=== PATIENT | male | born 1960 | race Caucasian/White ===

== ENCOUNTER 2023-10-25 06:07 | Inpatient (IN) ==
--- NOTE | 2023-10-05 16:07 | PAT Medication Instructions ---
Medication Instructions Date of Service October 05, 2023 Home Medications acetaminophen 500 mg tablet 500 mg PO QID PRN aspirin 81 mg capsule 81 mg PO HS divalproex 500 mg tablet,delayed release 1,000 mg PO HS divalproex 500 mg tablet,extended release 24 hr 500 mg PO QAM empagliflozin 12.5 mg-linaglipt 2.5 mg-metform ER 1,000 mg tablet,24hr 1 tab PO QAM lisinopril 20 mg tablet 20 mg PO HS magnesium 200 mg tablet 400 mg PO HS omeprazole 40 mg capsule,delayed release 40 mg PO DAILY PRN pramipexole 0.5 mg tablet 1.5 mg PO HS prazosin 5 mg capsule 5 mg PO HS rosuvastatin 10 mg tablet 10 mg PO HS sertraline 100 mg tablet 50 mg PO QAM solifenacin 5 mg tablet 5 mg PO QAM STOP 3 days before surgery empagliflozin 12.5 mg-linaglipt 2.5 mg-metform ER 1,000 mg tablet,24hr 1 tab PO QAM Continue as directed omeprazole 40 mg capsule,delayed release 40 mg PO DAILY PRN(if needed) ASK your prescriber and surgeon aspirin 81 mg capsule 81 mg PO HS divalproex 500 mg tablet,delayed release 1,000 mg PO HS DO NOT take the morning of surgery solifenacin 5 mg tablet 5 mg PO QAM Take morning of surgery With a small sip of water, OTHERWISE NOTHING TO EAT OR DRINK AFTER MIDNIGHT: acetaminophen 500 mg tablet 500 mg PO QID PRN(if needed) divalproex 500 mg tablet,extended release 24 hr 500 mg PO QAM sertraline 100 mg tablet 50 mg PO QAM Take evening before surgery acetaminophen 500 mg tablet 500 mg PO QID PRN(if needed) lisinopril 20 mg tablet 20 mg PO HS magnesium 200 mg tablet 400 mg PO HS pramipexole 0.5 mg tablet 1.5 mg PO HS prazosin 5 mg capsule 5 mg PO HS rosuvastatin 10 mg tablet 10 mg PO HS Other Notes If you have any questions please call us at [phone] or [phone] or [phone] or [phone]
--- NOTE | 2023-10-12 11:00 | Anesthesiology Consultation ---
Date of Service October 12, 2023 Assessment & Plan (1) Encounter for pre-operative examination: Chart Review Chart Review: Acceptable Risk for Surgery (pending PCP response regarding platelets ) and Patient seen in Pre Admission Testing - Please send optimization note to PCP re: thrombocytopenia- awaiting response (RENE Blanco) - Check BSG AM DOS requesting to stay overnight- will contact patient advocacy on further instructions (Patient with PTSD per and - patient is much more calm when is present) Per PAT appt on 10/12/23, no recent illness/disease exposures, illness related symptoms, or recent illness/disease positive tests. Will leave to surgeon's discretion if preop Covid testing needed Patient seen by PCP 10/11/23= seen for preop exam. Chronic neck painscheduled for anterior cervical discectomy C5-C7. Patient is cleared from a PCP perspective. Patient cardio clearance 10/10/23= seen for cardiac clearance. He adamantly denies any chest discomfort or shortness of breath. All recent cardiac testing has been unremarkable. Will cleared at low cardiac risk. Cleared at low risk. Teaching & Discussion Pre-Anesthesia Teaching/Discussion Notes: Instructed NPO after midnight before surgery,except medications with 15 cc of water. Medication instructions provided according to the PAT guidelines. History Surgery Operation Date: 10/25/23 14:05 Proposed Procedures p C5-C7 Anterior Cervical Discectomy and Fusion, Spinal Cord Monitoring - Zay Cr, Height/Weight Height: 5 ft 10 in Weight: 100.3 kg Allergies Allergy/AdvReac Type Severity Reaction Status Date / Time hydrocodone Allergy Unknown itching Verified 10/05/23 11:30 Medications Home Medications Medication Instructions Recorded Confirmed Last Taken acetaminophen 500 mg tablet 500 mg PO QID PRN Pain 10/05/23 10/05/23 Unknown aspirin 81 mg capsule 81 mg PO HS 10/05/23 10/05/23 Unknown divalproex 500 mg tablet,delayed 1,000 mg PO HS 10/05/23 10/05/23 Unknown release divalproex 500 mg tablet,extended 500 mg PO QAM 10/05/23 10/05/23 Unknown release 24 hr empagliflozin 12.5 mg-linaglipt 1 tab PO QAM 10/05/23 10/05/23 Unknown 2.5 mg-metform ER 1,000 mg tablet,24hr lisinopril 20 mg tablet 20 mg PO HS 10/05/23 10/05/23 Unknown magnesium 200 mg tablet 400 mg PO HS 10/05/23 10/05/23 Unknown pramipexole 0.5 mg tablet 1.5 mg PO HS 10/05/23 10/05/23 Unknown prazosin 5 mg capsule 5 mg PO HS 10/05/23 10/05/23 Unknown rosuvastatin 10 mg tablet 10 mg PO HS 10/05/23 10/05/23 Unknown sertraline 100 mg tablet 50 mg PO QAM 10/05/23 10/05/23 Unknown solifenacin 5 mg tablet 5 mg PO QAM 10/05/23 10/05/23 Unknown docusate sodium 100 mg capsule 100 mg PO BID 10/12/23 10/12/23 Unknown omeprazole 40 mg capsule,delayed 40 mg PO BID 10/12/23 10/12/23 Unknown release phenylephrine HCl 0.25 % rectal 1 supp HI BID 10/12/23 10/12/23 Unknown suppository polyethylene glycol 3350 17 17 g PO DAILY 10/12/23 10/12/23 Unknown gram/dose oral powder Past Medical History Medical History Hemorrhoids Currently working with PCP to address- recently started on suppositories and stool softeners/Miralax CAD (coronary artery disease) [facility] Medical marijuana use History of anesthesia reaction - 06/2023 states was given something to help him relax for hip replacement at [facility] in [place] that made his RLS much worse - Patient will try to find out specific medication and call or bring in DOS Tremor of both hands Panic attacks Dyslipidemia Diabetes Well controlled and stable Anxiety PTSD (post-traumatic stress disorder) Nausea and vomiting after administration of anesthetic agent Hx of myocardial infarction ~2012 card cath w/ stent to follow [facility] - follows w/ [facility] in [place] Sleep apnea CPAP; uses occasionally when he can tolerate COPD (chronic obstructive pulmonary disease) stable per pt; no meds Depression GERD (gastroesophageal reflux disease) Well controlled and stable HTN (hypertension) Restless leg syndrome Exercise / Class Metabolic Activity III < 4 Walking/Shop/Light housework (no chest pain or SOB with flat surface ambulation - uses cane ) Past Family History Family History Other No family history of adverse response to anesthesia Past Surgical History Surgical History History of esophagogastroduodenoscopy (EGD) Hx of colonoscopy Hx of cardiac catheterization ~2013- x 1 stent; [facility] Hx of skin graft multiple, for blevins Hx of arthroscopy of shoulder torn rotator cuff History of lumbar surgery History of right hip replacement 06/2023 done at surgery center in [place] Past Anesthesia History No Hx of Anesthesia Complications (with exception to combativeness pre and post op ( can help down)) and No Family Hx of Anesthesia Complications History of PONV No Hx of Motion Sickness and History of PONV Social History Smoking Status: Former smoker Do You Dip or Chew Tobacco: Yes (<1 can/day- advised) Smoking End Date: quit smoking 1981 Hx Alcohol Use: No Hx Substance Use: Yes (medical marijuana- PTSD- ADVISED) substance use type: marijuana Last Used Substance Other:: 10/05/23 Review of Systems Patient denies chest pain, shortness of breath, dyspnea on exertion, cough, wheezing, palpitations. No hx of seizures, stroke. No hx of blood clots or blood transfusions Physical Exam Vital Signs VITALS BP 129/85 P 72 TEMP 97.6 SP02 95% RESP 16 Constitutional no acute distress ENMT Mouth: no TMJ clicking Thyromental Distance: > or= 3.5 Finger Breadths (3.5) Mallampati Class: III Partial denture on bottom Neck + limited neck extension Respiratory normal respiratory effort; no respiratory distress Auscultation: lungs clear to auscultation bilaterally; no wheezes Cardiovascular Rate/Rhythm: regular rate and regular rhythm Heart Sounds: no murmur Vessels: no carotid bruit Musculoskeletal Spine: + pain with cervical ROM Extremities: extremities normal to inspection Psychiatric Orientation: alert Lab Results Anesthesia Preop Results Results Anesthesia Widget: WBC 4.12 K/ul (4.8-10.8) L 10/12/23 Hgb 13.8 g/dl (14.0-18.0) L 10/12/23 Hct 43.1 % (42.0-52.0) 10/12/23 Plt 102 K/uL (130-400) L 10/12/23 Na 141 mmol/L (136-145) 10/12/23 K 4.4 mmol/L (3.5-5.1) 10/12/23 Cl 108 mmol/L (98-107) H 10/12/23 CO2 27 mmol/L (21-32) 10/12/23 BUN 14 mg/dl (6-23) 10/12/23 Creat 0.70 mg/dl (0.6-1.4) 10/12/23 Glucose Level 102 mg/dl (70-99(Fasting)) H 10/12/23 PT 10.5 Seconds (9.0-12.0) 10/12/23 PTT 27 Seconds (21-31) 10/12/23 INR 1.0 (0.9-1.1) 10/12/23 HA1c 6.4 % (4.5-5.6) H 10/12/23 Urine Color Yellow 10/12/23 Urine Appearance Clear (Clear) 10/12/23 Urine pH 7.5 (4.5-7.5) 10/12/23 Urine Specific [place] 1.035 (1.000-1.030) H 10/12/23 Urine Protein Negative (Negative) 10/12/23 Urine Glucose (UA) 2+ (Negative) H 10/12/23 Urine Ketones Trace (Negative) H 10/12/23 Urine Blood Negative (Negative) 10/12/23 Urine Nitrite Negative (Negative) 10/12/23 Urine Bilirubin Negative (Negative) 10/12/23 Urine Urobilinogen Negative (Negative) 10/12/23 Urine Leukocyte Esterase Negative (Negative) 10/12/23 Blood Type O Positive 10/12/23 Antibody Screen NEGATIVE 10/12/23 Testing Laboratory Results Thrombocytopenia- will send note to PCP; surgeon's office also informed Electrocardiogram Date: 10/10/23 Findings: + NSR @ (79bpm) Incomplete RBBB Cannot rule out anterior infarct, age undetermined (EKG done at cardiac clearance appt 10/10/23) Chest X-Ray Date: 10/12/23 Findings: + NAD Echocardiogram Date: 12/09/22 EF: 55-60% LV Function: normal Other Findings: + LVH (moderate/concentric ) and + diastolic dysfunction Mild aortic valve sclerosis without significant stenosis Mitral annular calcification No evidence of intracardiac shunt Stress Test Date: 10/25/22 Type: nuclear Pharmacologic stress nuclear study is normal. Normal SPECT perfusion imaging. No significant ischemia detected. No evidence of infarct. Stress EKG test results normal. LVEF 50-55%
[~2023-10-25 06:07] MED LIST: ACETAMINOPHEN 500 MG TAB PO SCH; CeleBREX 200 MG CAP PO SCH; GABAPENTIN 600 MG DOSE PO SCH; LR 15ML/HR IV SCH; LR 60ML/HR IV SCH; ceFAZolin 2000MG 2,000 MG/15 ML SYR IV SCH
[2023-10-25] MEDS ORDERED: ePHEDrine sulfate 50 MG/ML AMP IV PRN (06:50)
[2023-10-25] MEDS ORDERED: ONDANSETRON INJ 2 MG/ML 2 ML VIAL IV PRN ×2 (06:50→11:18)
[2023-10-25] MEDS ORDERED: PROMETHAZINE HCL 6.25 MG in SODIUM CHLORIDE 0.9% 50 ML IV PRN (06:50)
[2023-10-25] MEDS ORDERED: ATROPINE SULFATE 0.1 MG/ML 10ML SYR IV PRN (06:50)
[2023-10-25] MEDS ORDERED: SCOPOLAMINE 1 MG TDSY TD STA (07:01)
[2023-10-25] MEDS ORDERED: LIDOCAINE 2% 2 ML VIAL/AMP(20MG/ML) INFIL ONE (07:18)
[2023-10-25] MEDS ORDERED: ONDANSETRON INJ 2 MG/ML 2 ML VIAL ONE (07:18)
[2023-10-25] MEDS ORDERED: fentaNYL citrate PF 100 MCG/2 ML VIAL ONE (07:18)
[2023-10-25] MEDS ORDERED: DEXAMETHASONE SOD INJ 4 MG/ML VIAL ONE (07:18)
[2023-10-25] MEDS ORDERED: SUGAMMADEX SODIUM 200 MG/2 ML VIAL IV ONE (07:19)
[2023-10-25] MEDS ORDERED: ceFAZolin 330 MG/ML 1 GM VIAL ONE (07:43)
--- NOTE | 2023-10-25 07:44 | History & Physical Bridge Note ---
Date of Service October 25, 2023 History & Physical Bridge Note I have examined the patient, reviewed the History & Physical and in the interval since the performance of the History & Physical I have noted the following changes of clinical significance: no changes noted
--- NOTE | 2023-10-25 07:45 | History & Physical Report ---
Date of Service October 25, 2023 Assessment & Plan (1) Cervical stenosis of spinal canal: Plan: C5-C7 anterior cervical discectomy and fusion History of Present Illness Chief Complaint: Neck and arm pain Primary Care Provider: Jonathan Woods PA-C This is a 63-year-old male who presents with chronic systolic and arm pain failing course of nonoperative care is here for surgical invention. Allergies Allergy/AdvReac Type Severity Reaction Status Date / Time hydrocodone Allergy Unknown itching Verified 10/25/23 06:41 midazolam [From Versed] AdvReac Severe Combative Verified 10/25/23 06:41 Home Medications Medication Instructions Recorded Confirmed Type acetaminophen 500 mg tablet 500 mg PO QID PRN Pain 10/05/23 10/25/23 History aspirin 81 mg capsule 81 mg PO HS 10/05/23 10/25/23 History divalproex 500 mg tablet,delayed 1,000 mg PO HS 10/05/23 10/25/23 History release (Depakote) divalproex 500 mg tablet,extended 500 mg PO QAM 10/05/23 10/25/23 History release 24 hr empagliflozin 12.5 mg-linaglipt 1 tab PO QAM 10/05/23 10/25/23 History 2.5 mg-metform ER 1,000 mg tablet,24hr (Trijardy XR) lisinopril 20 mg tablet 20 mg PO HS 10/05/23 10/25/23 History magnesium 200 mg tablet 400 mg PO HS 10/05/23 10/25/23 History pramipexole 0.5 mg tablet 1.5 mg PO HS 10/05/23 10/25/23 History prazosin 5 mg capsule (Minipress) 5 mg PO HS 10/05/23 10/25/23 History rosuvastatin 10 mg tablet 10 mg PO QAM 10/05/23 10/25/23 History sertraline 100 mg tablet 50 mg PO QAM 10/05/23 10/25/23 History solifenacin 5 mg tablet (Vesicare) 5 mg PO QAM 10/05/23 10/25/23 History docusate sodium 100 mg capsule 100 mg PO BID 10/12/23 10/25/23 History omeprazole 40 mg capsule,delayed 40 mg PO BID 10/12/23 10/25/23 History release phenylephrine HCl 0.25 % rectal 1 supp MI BID 10/12/23 10/25/23 History suppository polyethylene glycol 3350 17 17 g PO DAILY 10/12/23 10/25/23 History gram/dose oral powder Past Med/Surg History Medical History Hemorrhoids Currently working with PCP to address- recently started on suppositories and stool softeners/Miralax CAD (coronary artery disease) [facility] Medical marijuana use History of anesthesia reaction - 06/2023 states was given something to help him relax for hip replacement at [facility] in [place] that made his RLS much worse - Patient will try to find out specific medication and call or bring in DOS Tremor of both hands Panic attacks Dyslipidemia Diabetes Well controlled and stable Anxiety PTSD (post-traumatic stress disorder) Nausea and vomiting after administration of anesthetic agent Hx of myocardial infarction ~2012 card cath w/ stent to follow [facility] - follows w/ [facility] in [place] Sleep apnea CPAP; uses occasionally when he can tolerate COPD (chronic obstructive pulmonary disease) stable per pt; no meds Depression GERD (gastroesophageal reflux disease) Well controlled and stable HTN (hypertension) Restless leg syndrome Surgical History History of esophagogastroduodenoscopy (EGD) Hx of colonoscopy Hx of cardiac catheterization ~2012- x 1 stent; [facility] Hx of skin graft multiple, for blevins Hx of arthroscopy of shoulder torn rotator cuff History of lumbar surgery History of right hip replacement 06/2023 done at surgery center in [place] Family History Other No family history of adverse response to anesthesia Social History Smoking Status: Former smoker Tobacco Type: Cigarettes and Smokeless Tobacco (Dip or Chew) Smoking End Date: quit smoking 1981; Second Hand Exposure: No; Do You Dip or Chew Tobacco: Yes (<1 can/day- advised); Tobacco Cessation Education Requested by Patient: No Hx Alcohol Use: No Hx Substance Use: Yes (medical marijuana- PTSD- ADVISED) Last Used Substance Other:: 10/05/23 Preferred Language: Malay Communication Ability: Effective Title Searcher Required: No Beliefs That Will Affect Care: None Current Living Situation: Spouse Other Information That Helps Us Care for You: No Feels Safe at Home: Yes Safety Concerns: Feels Safe At This Time Assistive Devices: CPAP, Denture - Lower, Glasses and Hearing Aid - Bilateral Physical Exam Physical Exam: Patient is alert and oriented Heart regular rhythm Lungs clear
[2023-10-25] MEDS ORDERED: PROPOFOL IV EMULSION 10 MG/ML 20 ML VIAL IV ONE (08:19)
[2023-10-25] MEDS ORDERED: ROCURONIUM BROMIDE 10 MG/ML 5 ML VIAL IV ONE (08:19)
[2023-10-25] MEDS ORDERED: HYDROmorphone INJ 2 MG/ML SYR/VIAL ONE (08:22)
[2023-10-25] MEDS ORDERED: FLOSEAL HEMOSTATIC MATRIX 10ML TOP ONE (08:50)
--- NOTE | 2023-10-25 09:28 | Operative Report ---
Post Operative Report Pre & Post Diagnosis Operation Date: 10/25/23 07:45 Pre-Op Diagnosis: Cervical spinal stenosis with radiculopathy Post-Op Diagnosis: Same I identified the patient and participated in the time-out.: Yes Procedure Operation Date: 10/25/23 07:45 Actual Procedures #1 anterior cervical discectomy with bilateral foraminotomies C5-C6 C6-C7. #2 anterior cervical cancer C5-C6 C6-C7. #3 placement of Spira 7 mm cage filled with I factor at C5-C6 and 8 mm cage filled I factor C6-C7. #4 application of K2 M plate and screws from C5-C7. Surgeon Zay Cr, DO Log Handling Equipment Operator Rupa Gil Estimated Blood Loss 10 Findings Consistent with Post-Op Diagnosis Specimens None Indications This is a 63-year-old male presents above-mentioned diagnosis after failing course of nonoperative care is here for surgical invention. Description of Procedure Patient was met with identified informed sent obtained. Patient was then taken to the operative suite underwent ablation placed in spine position jacks table with head Negrete holt. All bony promises well-padded eyes inspected to ensure no external pressure placed upon them. This point the anterior cervical spine was prepped and draped in a sterile fashion. With the assistance of fluoroscopy identified the C6 vertebral body and a transverse incision was placed along the right anterior aspect of the cervical spine overlying his region. Blunt dissection with the assistance of bipolar cautery performed down to and exposing his anterior cervical spine from C5-C7. Self-retaining tractors placed. Then performed complete discectomy of C5-C6 out to the uncovertebral joint bilaterally. Decker distraction pins utilized to assist in visualization. Removed all posterior fibers longitude ligament bilateral foraminotomies were performed. Endplates burred to subcortical bleeding bone at 7 mm Spira cage with I factor tapped in position. Then proceeded to C6-C7. Again complete discectomy performed out to the uncovertebral joints bilaterally. Decker distractor pins again utilized. Removed all posterior annular fibers longitudinal ligament bilateral foraminotomies performed. Endplates burred to subcortical bleeding bone and a 8 mm Spira cage filled with I factor tapped in position. Distracting apparatus was removed all anterior osteophytes burred to a smooth cortical surface and a K2 M plate and screws applied with the assistance of fluoroscopy. The incision was then copiously irrigated explored to ensure no damage to surrounding structures remaining bleeding. 10 round SHEYLA drain inserted. The incision was then closed with 2 Vicryl in a fashion of 4 Monocryl for final closure. Steri-Strips sterile dressing placed. Patient waken taken to PACU in stable condition. Please note spinal cord monitoring visualized at the procedure no changes noted. Lastly Rupa Gil was present at the entire procedure none patient positioning complex portion of the surgery and final skin closure. I attest to the content of the Intraoperative Record and any orders documented therein. Any exceptions are noted below.
[2023-10-25] MEDS: fentaNYL citrate PF 100 MCG/2 ML VIAL IV PRN ×4 (09:47→10:02)
--- NOTE | 2023-10-25 10:07 | Fluoroscopy Report ---
INTRAOPERATIVE RADIOGRAPHS CLINICAL HISTORY: Cervical spinal fusion surgery. Fluoro time: 12 seconds Ka,r: 2.55 mGy FINDINGS: 3 spot fluoroscopic views of the cervical spine are presented. There has been discectomy at C5-C6 and C6-C7 with anterior fusion at C5-C7. The orthopedic hardware appears intact. An endotrache al tube is in place. IMPRESSION: Intraoperative images from cervical spinal fusion surgery as above. Electronically signed by: Nasim Rivas M.D. 10/25/2023 10:05 AM
[2023-10-25] MEDS: HYDROmorphone INJ 1 MG/ML SYRINGE IV PRN ×2 (10:08→10:13)
[2023-10-25] MEDS ORDERED: dexAMETHasone 8 MG in SYRINGE 0 ML IV PRN (11:18)
[2023-10-25] MEDS ORDERED: METOCLOPRAMIDE HCL INJ 5 MG/ML 2 ML VIAL IV PRN (11:18)
[2023-10-25] MEDS ORDERED: FAMOTIDINE 20 MG TAB PO PRN (11:18)
[2023-10-25] MEDS ORDERED: NALOXONE HCL 0.4 MG/1 ML VIAL/CARP IV PRN (11:18)
[2023-10-25] MEDS ORDERED: bisacodyL 10 MG SUPP PR PRN (11:18)
[2023-10-25] MEDS ORDERED: RACEPINEPHRINE 2.25% NEBU SOLN 0.5 ML VIAL INH PRN (11:18)
[2023-10-25] MEDS ORDERED: ACETAMINOPHEN 1,000 MG/100 ML VIAL IV PRN (11:18)
[2023-10-25] MEDS ORDERED: DO NOT ADMINISTER FLU VACCINE PRN (11:18)
[2023-10-25] MEDS ORDERED: PROMETHAZINE HCL 12.5 MG in SODIUM CHLORIDE 0.9% 50 ML IV PRN (11:18)
[2023-10-25] MEDS ORDERED: ALUMINUM/MAGNESIUM SUSP 30 ML UDC PO PRN (11:18)
[2023-10-25] MEDS ORDERED: MAGNESIUM HYDROXIDE SUSP 30 ML UDC PO PRN (11:18)
[2023-10-25] MEDS ORDERED: SOD PHOSPHATE/SOD BIPHOSPHATE ENEMA 132 ML BTL PR PRN (11:18)
[2023-10-25] MEDS ORDERED: HYDROmorphone INJ 0.5 MG/0.5 ML SYR IV PRN (11:18)
[2023-10-25] MEDS ORDERED: hydrOXYzine HCl 25 MG TAB PO PRN (11:18)
[2023-10-25] MEDS ORDERED: diphenhydrAMINE Capsule 25 MG CAP PO PRN (11:18)
[2023-10-25] MEDS ORDERED: ONDANSETRON 4 MG OD TAB PO PRN (11:18)
[2023-10-25] MEDS ORDERED: LORazepam 0.5 MG in SYRINGE 0.25 ML IV PRN (11:18)
[2023-10-25] MEDS ORDERED: DO NOT ADMINISTER PNEUMOCOCCAL VACCINE PRN (11:18)
[2023-10-25] MEDS ORDERED: ACETAMINOPHEN 500 MG TAB PO PRN (11:18)
[2023-10-25] MEDS ORDERED: traMADol HCL 50 MG TABLET PO PRN (11:18)
[2023-10-25] MEDS ORDERED: LORazepam 0.5 MG TAB PO PRN (11:18)
[2023-10-25] MEDS ORDERED: PHARMACY GLYCEMIC MGMT CONSULT PRN (11:18)
[2023-10-25] MEDS ORDERED: HYDROmorphone INJ 1 MG/ML SYRINGE IV PRN (11:18)
--- NOTE | 2023-10-25 11:38 | Consultation ---
Date of Consultation October 25, 2023 Assessment & Plan (1) Diabetes: (2) Cervical stenosis of spinal canal: (3) CAD (coronary artery disease): (4) HTN (hypertension): (5) Depression: (6) Sleep apnea: Plan Mr. Uribe is a 63 year old male that presented to the [facility] for an elective C5-C7 ACDF after failed conservative management under the care of Dr. Cr. Intra-operatively EBL 10mL. Additional PMH includes: CAD s/p AMI with stent placement in 2012, DM, PTSD, HTN, depression and overactive bladder. He has had a hip replacement recently and also has had lumbar surgeries in [place] years ago. Consultation for medical management. Cervical stenosis of spinal canal: POD# 0 s/p C5-C7 ACDF with Dr. Cr. Per ortho for pain control, wound care, anticoagulation and activities. anterior SHEYLA drain with sammi red bloody output Monitor H&H, pre op Hgb on 10/12 is 13.8; trend in AM Continue incentive spirometry, PT/OT when appropriate CAD s/p AMI: HTN: Chronic 2013 stent x1 at [facility] [place] Takes ASA daily;continue Takes Lisinopril; continue HLD: Chronic Takes Rosuvastatin;continue Bipolar Disorder: Chronic Takes Depakote;continue Depression: PTSD: Chronic Takes Sertraline;continue He does use medical marijuana for PTSD/anxiety. PTSD is related to his miliary experiences. Triggers include loud noises, beeping, etc. Diabetes: Chronic Takes Trijardy; hold while inpt and surgical team has pt placed on SSI FSBS ACHS Most recent A1C: 10/12 6.4 RLS: Chronic Takes pramipexole;continue OAB: Chronic Takes Vesicare;continue Disposition: [facility]: [facility] Code Status: Full Code VTE Prophylaxis: per admitting team I spent a total of 60 minutes coordinating, documenting, and providing care for this patient excluding time spent in the performance of separately billed services. All of the aforementioned completed while collaborating with the assigned attending physician for a full treatment plan. Please see their addendum for further details. Supervising Physician Co-Signing Physician Notes I have seen and examined the patient and have discussed the case with the provider above. I agree with the assessment and plan as stated. DO Salas History of Present Illness Requesting Physician: Dr. Cr Reason for Consultation: post operative medical management Attending Physician: Zay Cr DO History of Present Illness Mr. Uribe is a 63 year old male that presented to the [facility] for an elective C5-C7 ACDF after failed conservative management under the care of Dr. Cr. Intra-operatively EBL 10mL. Additional PMH includes: CAD s/p AMI with stent placement in 2012, DM, PTSD, HTN, depression and overactive bladder. He has had a hip replacement recently and also has had lumbar surgeries in [place] years ago. He quit smoking cigarettes in the . He does use medical marijuana for PTSD/anxiety. He reportedly has COPD that is stable without medications and has a CPAP machine at home for sleep apnea, but has not used it in over a few months. Patient denies numbness and tingling, SOB, chest pain, palpitations, abdominal pain or tenderness. He is sitting upright in his hospital bed, AAOx4 and able to hold full meaningful conversation. He reports that his PTSD is related to his experiences. Triggers include loud noises, beeping, etc. We will work to remove his IV fluids as he continues to tolerate PO intake. He is saturating 96% on 2LNC and tolerating well. [facility] operative medical management. Thank you kindly for this consultation. Allergies Allergy/AdvReac Type Severity Reaction Status Date / Time hydrocodone Allergy Unknown itching Verified 10/25/23 06:41 midazolam [From Versed] AdvReac Severe Combative Verified 10/25/23 06:41 Home Medications Medication Instructions Recorded Confirmed Type acetaminophen 500 mg tablet 500 mg PO QID PRN Pain 10/05/23 10/25/23 History aspirin 81 mg capsule 81 mg PO HS 10/05/23 10/25/23 History divalproex 500 mg tablet,delayed 1,000 mg PO HS 10/05/23 10/25/23 History release (Depakote) divalproex 500 mg tablet,extended 500 mg PO QAM 10/05/23 10/25/23 History release 24 hr empagliflozin 12.5 mg-linaglipt 1 tab PO QAM 10/05/23 10/25/23 History 2.5 mg-metform ER 1,000 mg tablet,24hr (Trijardy XR) lisinopril 20 mg tablet 20 mg PO HS 10/05/23 10/25/23 History magnesium 200 mg tablet 400 mg PO HS 10/05/23 10/25/23 History pramipexole 0.5 mg tablet 1.5 mg PO HS 10/05/23 10/25/23 History prazosin 5 mg capsule (Minipress) 5 mg PO HS 10/05/23 10/25/23 History rosuvastatin 10 mg tablet 10 mg PO QAM 10/05/23 10/25/23 History sertraline 100 mg tablet 50 mg PO QAM 10/05/23 10/25/23 History solifenacin 5 mg tablet (Vesicare) 5 mg PO QAM 10/05/23 10/25/23 History docusate sodium 100 mg capsule 100 mg PO BID 10/12/23 10/25/23 History omeprazole 40 mg capsule,delayed 40 mg PO BID 10/12/23 10/25/23 History release phenylephrine HCl 0.25 % rectal 1 supp MD BID PRN Hemorrhoids 10/12/23 10/25/23 History suppository polyethylene glycol 3350 17 17 g PO DAILY PRN Constipation 10/12/23 10/25/23 History gram/dose oral powder oxycodone 5 mg tablet 5 mg PO Q6H PRN pain #20 tabs 10/25/23 10/25/23 Rx tramadol 50 mg tablet 50 mg PO Q6H PRN pain, moderate 10/25/23 10/25/23 Rx #30 tabs Patient History Medical History (Updated 10/25/23 @ 11:33 by MARYCHUY Wahl) Diabetes Well controlled and stable Hemorrhoids Currently working with PCP to address- recently started on suppositories and stool softeners/Miralax CAD (coronary artery disease) s/p stent [facility]) Medical marijuana use History of anesthesia reaction - 06/2023 states was given something to help him relax for hip replacement at [facility] in [place] that made his RLS much worse - Patient will try to find out specific medication and call or bring in DOS Tremor of both hands Panic attacks Dyslipidemia Anxiety PTSD (post-traumatic stress disorder) Nausea and vomiting after administration of anesthetic agent Hx of myocardial infarction ~2012 card cath w/ stent to follow [facility] - follows w/ [facility] in [place] Sleep apnea CPAP; uses occasionally when he can tolerate COPD (chronic obstructive pulmonary disease) stable per pt; no meds Depression GERD (gastroesophageal reflux disease) Well controlled and stable HTN (hypertension) Restless leg syndrome Surgical History History of esophagogastroduodenoscopy (EGD) Hx of colonoscopy Hx of cardiac catheterization ~2013- x 1 stent; [facility] Hx of skin graft multiple, for blevins Hx of arthroscopy of shoulder torn rotator cuff History of lumbar surgery History of right hip replacement 06/2023 done at surgery center in [place] Family History Other No family history of adverse response to anesthesia Social History Smoking Status: Former smoker Tobacco Type: Cigarettes and Smokeless Tobacco (Dip or Chew) Smoking End Date: quit smoking 1981; Second Hand Exposure: No; Do You Dip or Chew Tobacco: Yes (<1 can/day- advised); Tobacco Cessation Education Requested by Patient: No Hx Alcohol Use: No Hx Substance Use: Yes (medical marijuana- PTSD- ADVISED) Last Used Substance Other:: 10/05/23 Preferred Language: Samoan Communication Ability: Effective Cluster Bore Operator Required: No Beliefs That Will Affect Care: None Current Living Situation: Spouse Other Information That Helps Us Care for You: No Feels Safe at Home: Yes Safety Concerns: Feels Safe At This Time Assistive Devices: CPAP, Denture - Lower, Glasses and Hearing Aid - Bilateral Review of Systems Review of Systems: Neuro: (-) Falls, trauma, slurred speech HEENT: (-) SAMSON, dizziness, dysphagia, visual or auditory changes CV: (-) CP, palpitations, swelling Resp: (-) SOB GI: (-) appetite changes, N/V/D, bowel changes : (-) urinary changes Skin: (-) rashes Psych: (-) anxiety, depression Physical Exam Physical Exam: Neuro: AAOx4, PERRLA, no aphagia, memory changes, CNII-XII grossly intact HEENT: head normocephalic, moist mucus membranes CV: S1/S2, (-) M/G/R, (-) edema, cap refill < 3 seconds Has anterior SHEYLA drain with sammi red blood Resp: Lungs CTA in all rodriguez. On 2LNC GI: Abdomen S/NT/ND, Ax4 bowel sounds, (-) CVA tenderness Musculoskeletal: 5/5 B/L UE strength, 5/5 B/L LE strength. No gait disturbance Skin: (-) rashes , (-) erythema. Psych: euthymic mood Results & Data Vital Signs (Past 12 Hours) Vital Signs Temp Pulse Pulse Resp BP Pulse Ox O2 Del Method 10/25/23 11:22 80 16 147/92 H 95 Nasal Cannula 10/25/23 10:35 88 17 149/91 H 94 Nasal Cannula 10/25/23 10:25 89 17 132/97 93 Nasal Cannula 10/25/23 10:15 36.2 C L 91 H 17 167/97 H 93 Nasal Cannula 10/25/23 10:05 89 14 158/99 H 93 Nasal Cannula 10/25/23 09:55 99 H 14 189/106 H 93 Nasal Cannula 10/25/23 09:45 94 H 15 180/104 H 93 Nasal Cannula 10/25/23 09:36 36.1 C L 98 H 17 169/93 H 93 Nasal Cannula O2 Flow Rate 10/25/23 11:22 2 10/25/23 10:35 3 10/25/23 10:25 3 10/25/23 10:15 3 10/25/23 10:05 3 10/25/23 09:55 3 10/25/23 09:45 3 10/25/23 09:36 3 Diagnostic Findings Cervical Spine X-Ray 10/25/23 00:00 INTRAOPERATIVE RADIOGRAPHS CLINICAL HISTORY: Cervical spinal fusion surgery. Fluoro time: 12 seconds Ka,r: 2.55 mGy FINDINGS: 3 spot fluoroscopic views of the cervical spine are presented. There has been discectomy at C5-C6 and C6-C7 with anterior fusion at C5-C7. The orthopedic hardware appears intact. An endotracheal tube is in place. IMPRESSION: Intraoperative images from cervical spinal fusion surgery as above. Electronically signed by: Nasim Rivas M.D. 10/25/2023 10:05 AM
[2023-10-25] MEDS: LACTATED RINGER'S 1,000 ML IV SCH ×2 (11:46→18:27)
[2023-10-25] MEDS ORDERED: LANTUS PER UNIT CHARGE SC ONE (12:00)
[2023-10-25] MEDS ORDERED: GLUCOSE 40% GEL 15 GM TUBE PO PRN (12:00)
[2023-10-25] MEDS ORDERED: CARBOHYDRATES FOR HYPOGLYCEMIA PO PRN (12:00)
[2023-10-25] MEDS ORDERED: GLUCAGON FOR INJ 1 MG VIAL IM PRN (12:00)
[2023-10-25] MEDS ORDERED: DEXTROSE 50% 50 ML SYRINGE IV PRN (12:00)
[2023-10-25] MEDS ORDERED: GLUCOSE 10 TAB/TUBE PO PRN (12:00)
[2023-10-25] MEDS: INSULIN ASPART PER UNIT CHARGE SC SCH ×3 (13:13→21:08)
--- NOTE | 2023-10-25 14:17 | Pharmacy Report ---
Pharmacy Glycemic Short Note 2 - Date of Service October 25, 2023 - Glycemic Short BSG Results (Last 24 hours): 10/25/23 10/25/23 06:33 09:42 POC Glucose 165 H 169 H OUTPATIENT ANTIDIABETIC REGIMEN: * Trijardy XR 1 tab PO daily * HbA1c: 6.4% (10/12/23) ASSESSMENT: * Mr Uribe is a 63yo diabetic male, POD 0 s/p spinal surgery w/ Dr Cr this morning. * Pt received 8mg IV dexamethasone pre-op and is scheduled to receive IV DXM daily x3 doses post-op. This tends to cause significant steroid-induced hyperglycemia. * Pt initiated on SQ basal/bolus insulin on admission. PLAN FOR INPATIENT GLYCEMIC CONTROL: * Hold outpatient oral diabetes medications * Basal insulin * Lantus 20 units SQ x1 dose on admission * further dosing pending BSG trend overnight * Bolus insulin * NovoLog per scale ACHS or Q6hrs while NPO * Goal Range: Low 110 mg/dL - High 140 mg/dL * Correction Factor: 25 mg/dL/unit * Nutritional / Prandial insulin per carb ratio of 1 unit per 7 grams CHO consumed
--- NOTE | 2023-10-25 14:24 | Anesthesiology Progress Note ---
Date of Service October 25, 2023 Anesthesia Post Procedure Vital Signs Vital Signs: Temp Pulse Pulse Resp BP Pulse Ox O2 Del Method 10/25/23 14:03 73 16 161/94 H 94 Nasal Cannula 10/25/23 13:05 36.6 C 77 16 165/93 H 95 Nasal Cannula 10/25/23 12:00 83 16 148/92 H 95 Nasal Cannula 10/25/23 11:22 80 16 147/92 H 95 Nasal Cannula 10/25/23 11:18 84 18 96 Nasal Cannula 10/25/23 10:50 Nasal Cannula 10/25/23 10:50 36.7 C 84 16 145/92 H 96 Nasal Cannula 10/25/23 10:35 88 17 149/91 H 94 Nasal Cannula 10/25/23 10:25 89 17 132/97 93 Nasal Cannula 10/25/23 10:15 36.2 C L 91 H 17 167/97 H 93 Nasal Cannula 10/25/23 10:05 89 14 158/99 H 93 Nasal Cannula 10/25/23 09:55 99 H 14 189/106 H 93 Nasal Cannula 10/25/23 09:45 94 H 15 180/104 H 93 Nasal Cannula 10/25/23 09:36 36.1 C L 98 H 17 169/93 H 93 Nasal Cannula O2 Flow Rate 10/25/23 14:03 2 10/25/23 13:05 2 10/25/23 12:00 2 10/25/23 11:22 2 10/25/23 11:18 3 10/25/23 10:50 2 10/25/23 10:50 2 10/25/23 10:35 3 10/25/23 10:25 3 10/25/23 10:15 3 10/25/23 10:05 3 10/25/23 09:55 3 10/25/23 09:45 3 10/25/23 09:36 3 Pain Intensity Neck: Pain Intensity: 5 Transfer of Care Handoff Completed per policy Notes Mental Status: alert / awake / arousable and participated in evaluation Patient Amnestic to Procedure: Yes Nausea / Vomiting: adequately controlled Pain: adequately controlled Airway Patency, RR, SpO2: stable & adequate BP & HR: stable & adequate Hydration State: stable & adequate Anesthetic Complications: no major complications apparent and Pt Satisfied with anesthetic care
[2023-10-25] MEDS: oxyCODONE HCL IR 5 MG TAB (IMMEDIATE RELEASE) PO PRN ×2 (16:01→20:59)
[2023-10-25] MEDS: CHECK SCOPOLAMINE PATCH PLACEMENT SCH ×2 (16:02→23:36)
[2023-10-25] MEDS: ceFAZolin 2000MG 2,000 MG/15 ML SYR IV SCH (16:45)
[2023-10-25] MEDS: PANTOprazole 40 MG TAB PO SCH (20:49)
[2023-10-25] MEDS: DOCUSATE SODIUM 100 MG CAP PO SCH (20:50)
[2023-10-25] MEDS ORDERED: DOCUSATE SODIUM/SENNA 50/8.6MG TAB PO SCH (21:00)
[2023-10-25] MEDS ORDERED: PRAZOSIN HCL 1 MG CAP PO SCH (21:00)
[2023-10-25] MEDS ORDERED: ASPIRIN 81 MG ECTAB PO SCH (21:00)
[2023-10-25] MEDS ORDERED: MAGNESIUM OXIDE 400 MG TAB PO SCH (21:00)
[2023-10-25] MEDS ORDERED: PRAMIPEXOLE DIHYDROCHLO 0.5 MG TAB PO SCH (21:00)
[2023-10-25] MEDS ORDERED: lisinopril 20 MG TAB PO SCH (21:00)
[2023-10-25] MEDS ORDERED: DIVALPROEX DELAY RELEASE 500 MG TAB PO SCH (21:00)
[2023-10-26] MEDS: ceFAZolin 2000MG 2,000 MG/15 ML SYR IV SCH (00:47)
[2023-10-26] MEDS: LACTATED RINGER'S 1,000 ML IV SCH ×2 (00:48→07:44)
[2023-10-26] MEDS: oxyCODONE HCL IR 5 MG TAB (IMMEDIATE RELEASE) PO PRN ×2 (05:20→10:18)
[2023-10-26] MEDS ORDERED: POLYETHYLENE (MIRALAX) 17 GM PACK PO SCH (06:00)
[2023-10-26] MEDS: PANTOprazole 40 MG TAB PO SCH (08:32)
[2023-10-26] MEDS: DOCUSATE SODIUM 100 MG CAP PO SCH (08:32)
[2023-10-26] MEDS: INSULIN ASPART PER UNIT CHARGE SC SCH (08:47)
[2023-10-26] MEDS: CHECK SCOPOLAMINE PATCH PLACEMENT SCH (08:50)
[2023-10-26] MEDS ORDERED: OXYBUTYNIN CHLORIDE XL 5 MG TABCR PO SCH (09:00)
[2023-10-26] MEDS ORDERED: ROSUVASTATIN CALCIUM 10 MG TAB PO SCH (09:00)
[2023-10-26] MEDS ORDERED: DIVALPROEX EXTENDED RELEASE 500 MG TAB PO SCH (09:00)
[2023-10-26] MEDS ORDERED: SERTRALINE HCL 50 MG TABLET PO SCH (09:00)
[2023-10-26] MEDS ORDERED: dexAMETHasone 6 MG in SYRINGE 0 ML IV SCH (09:00)
[2023-10-26] MEDS ORDERED: LANTUS PER UNIT CHARGE SC SCH (09:00)
--- NOTE | 2023-10-26 09:27 | Discharge Summary ---
Date of Service October 26, 2023 Admission HPI Per Admitting Provider This is a 63-year-old male who presents with chronic systolic and arm pain failing course of nonoperative care is here for surgical invention. Principal Diagnosis Cervical spinal stenosis with radiculopathy Discharge Data Allergies Allergy/AdvReac Type Severity Reaction Status Date / Time hydrocodone Allergy Unknown itching Verified 10/25/23 06:41 midazolam [From Versed] AdvReac Severe Combative Verified 10/25/23 06:41 Consultations 10/25/23 11:18 Consult Hospitalist Routine Procedures Performed Operation Date: 10/25/23 07:45 Actual Procedures p C5-C7 Anterior Cervical Discectomy and Fusion, Spinal Cord Monitoring(Not Applicable) - Zay Cr DO Ordered Studies 10/25/23 [place] cervical 2-3V Routine Hospital Course (1) Cervical stenosis of spinal canal: Patient underwent anterior cervical discectomy and fusion tolerated as well as taken orthopedic for postoperative. Postop day 1 is swallowing well. No hoarseness. Arm symptoms improved. I suspect the testing. Simply discharged home per discharge orders instructions found in chart for review. Total Time Total Time Spent Total Time Spent (In Minutes): 20 minutes Discharge Plan Discharge Items Patient Disposition: Home - Self-Care Reason For Visit: Cervical Spondylosis Discharge Diagnosis: Cervical spinal stenosis with radiculopathy Activity: As commented below Non-emergency contact: Primary Care Provider Call non-emergency contact if: you have any medication questions Follow-up/Referrals: PCP,NO [Physician] - Diet: Regular Addtl Attending Provider Instructions: ACTIVITY RECOMMENDATIONS: SELF CARE INSTRUCTIONS AFTER CERVICAL FUSIONS 1. No smoking. Smoking drastically decreases the chance of a solid fusion. 2. No bending, lifting more than 5 pounds, or twisting (roll like a log when turning in bed). 3. You may shower 3 days after surgery. Thoroughly dry wound. Do not soak in the tub. 4. Cervical collar: Must be worn at all times including sleeping. You may remove the brace only to bath, eat and if you are sitting in a recliner. 5. Please walk as much as you can for exercise. Gradually increase the distance that you walk as your endurance increases. SPECIAL CARE INSTRUCTIONS: VERY IMPORTANT TO READ AND REVIEW A. Do not take any anti-inflammatory medications (i.e. Indocin, Advil, Aspirin, Naprosyn, Aleve, Motrin, etc.) as these may inhibit the chance of a solid fusion. Tylenol is okay to take. B. Your surgical incision has been closed with a cosmetic suture under the skin that will dissolve in about 6 weeks. In 14 days, you can use a pair of clean scissors and cut the suture that is left outside of the skin at the ends of your incision. C. Complications are uncommon, but please contact us if you have any signs or symptoms of: 1. wound infection (fever higher than 102.5 degrees F, redness, separation of wound, drainage, or increasing pain from the incision) 2. blood clots in legs (pain, swelling, redness and warmth in legs) 3. urinary tract infection (fever higher than 102.5 degrees, burning upon urination or increased frequency of urination) 4. nerve problems (inability to walk on your toes or heels, numbness, loss of bowel or bladder control) 5. any other symptoms that concern you. D. Please call the office at if you have any concerns or questions about your operation or recovery. MANAGING PAIN AFTER SPINAL SURGERY 1. Narcotic medication is intended for short-term use and will be provided for surgical pain. Surgical pain usually lasts for a period of 4-6 weeks. Narcotic medication includes Percocet, Vicodin, Darvocet, Tylenol #3 or Lortab. 2. Longer-term pain is more appropriately treated with non-narcotic medication such as Tylenol ES. 3. Muscle spasm is not appropriately treated with narcotics. Muscle relaxers such as Soma, Flexeril or Skelaxin can be used along with Tylenol ES. 4. Remember that we all live with some "aches and pains". This is not unusual or uncommon after an injury or as we get older. 5. We will provide appropriate medication within the normal guidelines of their prescribed use. We will also be very cautious and aware of potential abuse and extended duration of patients' medication needs. 6. Please allow 2-3 days to process refills. Prescriptions will not be mailed but must be picked up at the office. FOLLOW UP VISIT: Keep your scheduled follow-up appointment. Any questions, please call the office at . Pending Studies at Discharge: No Stand-Alone Forms: [employer], Smoking Cessation Medications and DC Order Prescriptions: New tramadol 50 mg tablet 50 mg PO Q6H PRN (Reason: pain, moderate) Qty: 30 0RF oxycodone 5 mg tablet 5 mg PO Q6H PRN (Reason: pain) Qty: 20 0RF Continued lisinopril 20 mg Tablet 20 mg PO HS sertraline 100 mg Tablet 50 mg PO QAM divalproex [Depakote] 500 mg Tablet,Delayed Release (Dr/Ec) 1,000 mg PO HS pramipexole 0.5 mg Tablet 1.5 mg PO HS prazosin [Minipress] 5 mg Capsule 5 mg PO HS divalproex 500 mg Tablet Extended Release 24 Hr 500 mg PO QAM magnesium 200 mg Tablet 400 mg PO HS rosuvastatin 10 mg Tablet 10 mg PO QAM solifenacin [Vesicare] 5 mg Tablet 5 mg PO QAM Trijardy XR 12.5-2.5-1,000 mg Tablet, Ir - Er, Biphasic 24hr 1 tab PO QAM aspirin 81 mg Capsule 81 mg PO HS acetaminophen 500 mg Tablet 500 mg PO QID PRN (Reason: Pain) omeprazole 40 mg Capsule,Delayed Release(Dr/Ec) 40 mg PO BID docusate sodium 100 mg Capsule 100 mg PO BID polyethylene glycol 3350 17 gram/dose Powder 17 g PO DAILY PRN (Reason: Constipation) phenylephrine HCl 0.25 % Suppository 1 supp NM BID PRN (Reason: Hemorrhoids) Discharge Orders: Discharge Order (Routine); Ordered 10/26/23 Ordered By: Zay Cr Admission Data Admit Date/Time: 10/25/23 09:32 Attending Provider: Zay Cr Admit Provider: Zay Cr Primary Care Provider: Jonathan Woods Other Providers: [facility],Hospital; [place]
--- NOTE | 2023-10-26 10:08 | Hospitalist Progress Note ---
Date of Service October 26, 2023 Assessment & Plan (1) Diabetes: (2) Cervical stenosis of spinal canal: (3) CAD (coronary artery disease): (4) HTN (hypertension): (5) Depression: (6) Sleep apnea: Plan Mr. Uribe is a 63 year old male that presented to the [facility] for an elective C5-C7 ACDF after failed conservative management under the care of Dr. Cr. Intra-operatively EBL 10mL. Additional PMH includes: CAD s/p AMI with stent placement in 2012, DM, PTSD, HTN, depression and overactive bladder. He has had a hip replacement recently and also has had lumbar surgeries in [place] years ago. Consultation for medical management. Cervical stenosis of spinal canal: POD# 1 s/p C5-C7 ACDF with Dr. Cr. Per ortho for pain control, wound care, anticoagulation and activities. Monitor H&H, pre op Hgb on 10/12 is 13.8 Pt stable for d/c per ortho and will d/c later this morning CAD s/p AMI: HTN: Chronic 2013 stent x1 at [facility] [place] Takes ASA daily;continue Takes Lisinopril; continue denies CP/SOB BP slightly elevated this a.m., likely 2/2 pain HLD: Chronic Takes Rosuvastatin;continue Bipolar Disorder: Chronic Takes Depakote;continue Depression: PTSD: Chronic Takes Sertraline;continue He does use medical marijuana for PTSD/anxiety. PTSD is related to his miliary experiences. Triggers include loud noises, beeping, etc. states pt anxious and wishing to be discharged as soon as possible Diabetes: Chronic Takes Trijardy; hold while inpt and surgical team has pt placed on SSI FSBS ACHS Most recent A1C: 10/12 6.4 resume home medications at discharge RLS: Chronic Takes pramipexole;continue OAB: Chronic Takes Vesicare;continue Disposition: PCP: [place] Code Status: Full Code VTE Prophylaxis: per admitting team Dispo: D/C to home today. Pt was seen and examined in collaboration with Dr. Valdivia, please see addendum Admission and Anticipated Discharge Date Admission Date: October 25, 2023 Supervising Physician Co-Signing Physician Notes Pt seen and examined by myself, Crystal Valdivia MD on the day of service. Care was coordinated with Erma Beltran PA-C. 63yoM s/p C5-C7 Anterior Cervical Discectomy and Fusion with ortho spine. Was resting comfortably in bed when seen, also at bedside. Had dressing with some blood/drainage on right side of neck. RRR, breath sounds clear bilaterally. notes Hx of hip replacement as pt has some difficulty moving lower extremities in the bed as well. Stable post-op. Noted hgba1c of 6.1, can resume home medications upon discharge. DVt prophylaxis and further postop ortho care per primary team. Otherwise as above. Subjective Patient was seen and examined in room 317. Follow-up ACDF by Dr. Cr. His is at bedside who also helps elicit history. He is feeling well this morning and planning to be discharged home. He tolerated breakfast and denies any difficulty swallowing or shortness of breath. He denies fever, chills, sweats, lightheadedness, dizziness, chest pain, shortness of breath. Review of Systems Review of Systems: All systems reviewed & are unremarkable except as noted in HPI & below Physical Exam Physical Exam: Gen: WD/WN, NAD, A&O x3 Neck: Cervical dressing with serosanguineous drainage, saturated HEENT: Normocephalic, atraumatic, conjunctivae moist, sclerae anicteric, mucous membranes moist. Lung: Clear to Auscultation bilaterally, no wheezes/rales/rhonchi Heart: Regular rate, regular rhythm, no murmurs, rubs, or gallops Abdomen: Soft, NT, ND +BS x 4 Extremities: No edema Skin: Warm, no rash, negative turgor. Results & Data Results & Data Vital Signs (Past 12 Hours) Vital Signs Temp Pulse Resp BP Pulse Ox O2 Del Method O2 Flow Rate 10/26/23 07:37 74 14 96 Room Air 10/26/23 07:31 36.5 C 83 18 151/71 H 92 Room Air 10/26/23 05:00 36.5 C 85 18 149/79 H 94 Room Air 10/26/23 03:05 80 16 94 Room Air 10/26/23 02:53 36.4 C L 87 18 117/71 94 Nasal Cannula 2 10/25/23 23:10 72 16 94 Nasal Cannula 2 10/25/23 22:59 37.0 C 81 18 155/89 H 94 Nasal Cannula 2 FiO2 10/26/23 07:37 21 10/26/23 07:31 10/26/23 05:00 10/26/23 03:05 10/26/23 02:53 10/25/23 23:10 10/25/23 22:59 Medications Administered Current Inpatient Medications Acetaminophen (Acetaminophen 500 Mg Tab) 1,000 mg PO Q8H PRN PRN Reason: MILD Pain Scale 1,2,3 & Pre PT Stop: 11/24/23 11:17 Al Hydrox/Mg Hydrox/Simethicone (Aluminum/Magnesium Susp 30 Ml Udc) 30 ml PO Q 6H PRN PRN Reason: Dyspepsia Stop: 11/24/23 11:17 Aspirin (Aspirin 81 Mg Ectab) 81 mg PO HS [facility] Stop: 11/24/23 20:59 Last Admin: 10/25/23 20:49 Dose: 81 mg Bisacodyl (Bisacodyl 10 Mg Supp) 10 mg MO DAILY PRN PRN Reason: Constipation Stop: 11/24/23 11:17 Dextrose (Dextrose 50% 50 Ml Syringe) 25 - 50 ml IV UD PRN; Protocol PRN Reason: Hypoglycemia Protocol Stop: 11/24/23 11:59 Diphenhydramine HCl (Diphenhydramine Capsule 25 Mg Cap) 25 mg PO Q6H PRN PRN Reason: Allergic Rhinitis/Insomnia Stop: 11/24/23 11:17 Divalproex Sodium (Divalproex Delay Release 500 Mg Tab) 1,000 mg PO HS [facility] Stop: 11/24/23 20:59 Last Admin: 10/25/23 20:51 Dose: 1,000 mg Divalproex Sodium (Divalproex Extended Release 500 Mg Tab) [facility] Stop: 11/25/23 08:59 Last Admin: 10/26/23 08:32 Dose: 500 mg Docusate Sodium (Docusate Sodium 100 Mg Cap) 100 mg PO BID [facility] Stop: 11/24/23 20:59 Last Admin: 10/26/23 08:32 Dose: 100 mg Epinephrine (Racepinephrine 2.25% Nebu Soln 0.5 Ml Vial) 0.5 ml INH NOW PRN PRN Reason: If stridor present Famotidine (Famotidine 20 Mg Tab) 20 mg PO Q12H PRN PRN Reason: Dyspepsia Stop: 11/24/23 11:17 Glucagon (Glucagon For Inj 1 Mg Vial) 1 mg IM UD PRN; Protocol PRN Reason: Hypoglycemia Protocol Stop: 11/24/23 11:59 Glucose (Glucose 40% Gel 15 Gm Tube) 15 - 30 gm PO UD PRN; Protocol PRN Reason: Hypoglycemia Protocol Stop: 11/24/23 11:59 Glucose (Glucose 10 Tab/Tube) 4 - 8 tab PO UD PRN; Protocol PRN Reason: Hypoglycemia Protocol Stop: 11/24/23 11:59 Hydromorphone HCl (Hydromorphone Inj 0.5 Mg/0.5 Ml Syr) 0.5 mg IV Q3H PRN PRN Reason: MODERATE Pain (Scale 4,5,6) & Pre PT Stop: 11/08/23 11:17 Hydromorphone HCl (Hydromorphone Inj 1 Mg/Ml Syringe) 1 mg IV Q3H PRN PRN Reason: SEVERE Pain (Scale 7,8,9,10) Stop: 11/08/23 11:17 Hydroxyzine HCl (Hydroxyzine Hcl 25 Mg Tab) 25 mg PO Q8H PRN PRN Reason: Anxiety Stop: 11/24/23 11:17 Dexamethasone 8 mg/ Syringe 2 mls @ 1 mls/min IV NOW PRN PRN Reason: If stridor present Promethazine HCl 12.5 mg/ (Sodium Chloride) 50.5 mls @ 202 mls/hr IV Q6H PRN PRN Reason: Nausea &/or Vomiting Stop: 11/24/23 11:17 Acetaminophen (Ofirmev) 1,000 mg in 100 mls @ 400 mls/hr IV Q8H PRN PRN Reason: Pain Rating 1-3 & Pre PT Stop: 10/26/23 11:18 Lorazepam 0.5 mg/ Syringe 0.5 mls @ 2 mls/min IV Q8H PRN; Protocol PRN Reason: Sedation/Anxiety Stop: 11/24/23 11:17 Dexamethasone 6 mg/ Syringe 1.5 mls @ 1 mls/min IV TODAY@0900 [facility] Stop: 10/28/23 09:02 Last Admin: 10/26/23 08:32 Dose: 1 mls/min Influenza Virus Vaccine Quadrival (Do Not Administer Flu Vaccine) 1 each N/A PRN PRN PRN Reason: Notification Stop: 11/24/23 11:17 Insulin Aspart (Insulin Aspart Per Unit Charge) 0 units SC ACHS [facility] Stop: 11/24/23 11:59 Last Admin: 10/26/23 08:47 Dose: 6 units Insulin Glargine (Lantus Per Unit Charge) 15 units SC DAILY [facility] Stop: 11/25/23 08:59 Last Admin: 10/26/23 08:47 Dose: 15 units Lisinopril (Lisinopril 20 Mg Tab) 20 mg PO HS [facility] Stop: 11/24/23 20:59 Last Admin: 10/25/23 20:51 Dose: 20 mg Lorazepam (Lorazepam 0.5 Mg Tab) 0.5 mg PO Q8H PRN PRN Reason: Sedation/Anxiety Stop: 11/24/23 11:17 Magnesium Hydroxide (Magnesium Hydroxide Susp 30 Ml Udc) 30 ml PO Q24H PRN PRN Reason: Constipation Stop: 11/24/23 11:17 Magnesium Oxide (Magnesium Oxide 400 Mg Tab) 400 mg PO [facility] Stop: 11/24/23 20:59 Last Admin: 10/25/23 20:51 Dose: 400 mg Metoclopramide HCl (Metoclopramide Hcl Inj 5 Mg/Ml 2 Ml Vial) 10 mg IV Q6H PRN PRN Reason: Nausea &/or Vomiting Stop: 11/24/23 11:17 Miscellaneous (Remove Transderm-Scop Patch) 1 each N/A ONE ONE Stop: 10/28/23 06:01 Miscellaneous (Check Scopolamine Patch Placement) 1 each N/A QS [facility] Stop: 10/28/23 05:59 Last Admin: 10/26/23 08:50 Dose: Not Given Miscellaneous (Carbohydrates For Hypoglycemia ) 15 - 30 gm PO UD PRN PRN Reason: Hypoglycemia Treatment Stop: 11/24/23 11:59 Miscellaneous Information (Pharmacy Glycemic Mgmt Consult) 1 each N/A UD PRN PRN Reason: Consult Stop: 11/24/23 11:17 Naloxone HCl (Naloxone Hcl 0.4 Mg/1 Ml Vial/Carp) 0.1 mg IV Q5M PRN PRN Reason: Oversedation/Resp depression Stop: 11/24/23 11:17 Ondansetron HCl (Ondansetron Inj 2 Mg/Ml 2 Ml Vial) 4 mg IV Q6H PRN PRN Reason: Nausea &/or Vomiting Stop: 11/24/23 11:17 Last Admin: 10/25/23 20:59 Dose: 4 mg Ondansetron HCl (Ondansetron 4 Mg Od Tab) 4 mg PO Q6H PRN PRN Reason: Nausea Stop: 11/24/23 11:17 Oxybutynin Chloride (Oxybutynin Chloride Xl 5 Mg Tabcr) 5 mg PO QAM [facility] Stop: 11/25/23 08:59 Last Admin: 10/26/23 08:32 Dose: 5 mg Oxycodone HCl (Oxycodone Hcl Ir 5 Mg Tab (Immediate Release)) 5 - 10 mg PO Q4H PRN PRN Reason: Pain & Pre PT Stop: 11/08/23 11:17 Last Admin: 10/26/23 05:20 Dose: 10 mg Pantoprazole Sodium (Pantoprazole 40 Mg Tab) 40 mg PO BID [facility] Stop: 11/24/23 20:59 Last Admin: 10/26/23 08:32 Dose: 40 mg Pneumococcal Polyvalent Vaccine (Do Not Administer Pneumococcal Vaccine) 1 each N/A PRN PRN PRN Reason: Notification Stop: 11/24/23 11:17 Polyethylene Glycol (Polyethylene (Miralax) 17 Gm Pack) 17 gm PO Q6 [facility] Stop: 11/25/23 05:59 Last Admin: 10/26/23 05:17 Dose: 17 gm Pramipexole Dihydrochloride (Pramipexole Dihydrochlo 0.5 Mg Tab) 1.5 mg PO HS [facility] Stop: 11/24/23 20:59 Last Admin: 10/25/23 20:50 Dose: 1.5 mg Prazosin HCl (Prazosin Hcl 1 Mg Cap) 5 mg PO [facility] Stop: 11/24/23 20:59 Last Admin: 10/25/23 20:52 Dose: 5 mg Rosuvastatin Calcium (Rosuvastatin Calcium 10 Mg Tab) 10 mg PO QAM [facility] Stop: 11/25/23 08:59 Last Admin: 10/26/23 08:32 Dose: 10 mg Senna/Docusate Sodium (Docusate Sodium/Senna 50/8.6mg Tab) 2 tab PO [facility] Stop: 11/24/23 20:59 Last Admin: 10/25/23 20:50 Dose: 2 tab Sertraline HCl (Sertraline Hcl 50 Mg Tablet) 50 mg PO QAM [facility] Stop: 11/25/23 08:59 Last Admin: 10/26/23 08:32 Dose: 50 mg Sodium Biphosphate/Sodium Phosphate (Sod Phosphate/Sod Biphosphate Enema 132 Ml Btl) 132 ml MO ONE PRN PRN Reason: Constipation Stop: 11/24/23 11:17 Tramadol HCl (Tramadol Hcl 50 Mg Tablet) 50 - 100 mg PO Q4H PRN PRN Reason: Moderate-Severe pain & Pre PT Stop: 11/24/23 11:17
== END 2023-10-26 12:04 | disposition home or self-care (01) | DRG 473 ==
LOC: ASU 06:07 → 3E 06:07 → OBSVTOIN 09:32

== ENCOUNTER 2024-02-06 07:38 | Inpatient (IN) ==
--- NOTE | 2024-01-15 12:21 | PAT Medication Instructions ---
Medication Instructions Date of Service January 15, 2024 Home Medications Medication Instructions Recorded tramadol 50 mg tablet 50 mg PO Q6H PRN pain, moderate 10/25/23 #30 tabs acetaminophen 500 mg tablet 500 mg PO QID PRN aspirin 81 mg capsule 81 mg PO HS divalproex 500 mg tablet,delayed release (Depakote) 1,000 mg PO HS divalproex 500 mg tablet,extended release 24 hr 500 mg PO QAM empagliflozin 12.5 mg-linaglipt 2.5 mg-metform ER 1,000 mg tablet,24hr (Trijardy XR) 1 tab PO QAM lisinopril 20 mg tablet 20 mg PO HS magnesium 200 mg tablet 400 mg PO HS pramipexole 0.5 mg tablet 1.5 mg PO HS prazosin 5 mg capsule (Minipress) 5 mg PO HS rosuvastatin 10 mg tablet 10 mg PO QAM sertraline 100 mg tablet 50 mg PO QAM solifenacin 5 mg tablet (Vesicare) 5 mg PO QAM docusate sodium 100 mg capsule 100 mg PO BID omeprazole 40 mg capsule,delayed release 40 mg PO BID phenylephrine HCl 0.25 % rectal suppository 1 supp [place] BID PRN polyethylene glycol 3350 17 gram/dose oral powder 17 g PO DAILY PRN tramadol 50 mg tablet 50 mg PO Q6H PRN Vitamin D3 1 tab PO BID STOP 3 days before surgery-check with prescribing provider if any concerns stopping medication for 3 days empagliflozin 12.5 mg-linaglipt 2.5 mg-metform ER 1,000 mg tablet,24hr (Trijardy XR) 1 tab PO QAM ASK your prescriber and surgeon aspirin 81 mg capsule 81 mg PO HS DO NOT take the morning of surgery solifenacin 5 mg tablet (Vesicare) 5 mg PO QAM docusate sodium 100 mg capsule 100 mg PO BID phenylephrine HCl 0.25 % rectal suppository 1 supp NM BID PRN polyethylene glycol 3350 17 gram/dose oral powder 17 g PO DAILY PRN Vitamin D3 1 tab PO BID Take morning of surgery With a small sip of water, OTHERWISE NOTHING TO EAT OR DRINK AFTER MIDNIGHT: acetaminophen 500 mg tablet 500 mg PO QID PRN(if needed) divalproex 500 mg tablet,extended release 24 hr 500 mg PO QAM rosuvastatin 10 mg tablet 10 mg PO QAM sertraline 100 mg tablet 50 mg PO QAM omeprazole 40 mg capsule,delayed release 40 mg PO BID tramadol 50 mg tablet 50 mg PO Q6H PRN(if needed) Take evening before surgery acetaminophen 500 mg tablet 500 mg PO QID PRN(if needed) divalproex 500 mg tablet,delayed release (Depakote) 1,000 mg PO HS lisinopril 20 mg tablet 20 mg PO HS magnesium 200 mg tablet 400 mg PO HS pramipexole 0.5 mg tablet 1.5 mg PO HS prazosin 5 mg capsule (Minipress) 5 mg PO HS docusate sodium 100 mg capsule 100 mg PO BID omeprazole 40 mg capsule,delayed release 40 mg PO BID phenylephrine HCl 0.25 % rectal suppository 1 supp NM BID PRN(if needed) tramadol 50 mg tablet 50 mg PO Q6H PRN(if needed) Vitamin D3 1 tab PO BID Other Notes If you have any questions please call us at [phone] or [phone] or [phone] or [phone]
--- NOTE | 2024-01-17 13:52 | Anesthesiology Consultation ---
Date of Service January 17, 2024 Assessment & Plan (1) Encounter for pre-operative examination: Chart Review Chart Review: Acceptable Risk for Surgery (pending surgeon PCP clearance ) and Patient seen in Pre Admission Testing - Awaiting PCP clearance if available (seen approximately one month ago- seeing if PCP can write letter from that visit per patient) - please send testing to PCP for continuity of care Versed adverse reaction - Check BSG AM DOS requesting to stay overnight with patient in hospital. (Patient with PTSD per and - patient is much more calm when is present). Patient's did stay over night with patient with cervical surgery. Email sent to Nurse Dye Colorist Dyer, Acute Care Services Director, and Patient Advocacy- cannot make determination if can stay over until day of surgery- this was communicated to who voices understanding. Per PAT appt on 01/17/24, no recent illness/disease exposures, illness related symptoms, or recent illness/disease positive tests. Will leave to surgeon's discretion if preop Covid testing needed Patient seen by cardiology 01/03/2024 = patient presents for initial cardiac evaluation. Reports fatigue. Has chronic low back pain and currently being evaluated for lumbar spine surgery. Denies chest pain to suggest angina. No near-syncope or syncope. Continue current medications. Encourage low-sodium diet. Check BP on regular basis. Echocardiogram and EKG to be updated in the future (scheduled in February 2024 per patient). He is considered at a low to intermediate cardiac risk for his spine surgery. Follow-up in 6 months. C5-7 ACDF 10/25/23= Done under [place] with Grade 1 view with Glidescope #4. Teaching & Discussion Pre-Anesthesia Teaching/Discussion Notes: Instructed NPO after midnight before surgery,except medications with 15 cc of water. Medication instructions provided according to the PAT guidelines. History Surgery Operation Date: 02/06/24 07:45 Proposed Procedures p L2-S1 Decompression and Fusion with Spinal Cord Monitoring - Zay Cr DO Height/Weight Height: 5 ft 10 in Weight: 103.1 kg Allergies Allergy/AdvReac Type Severity Reaction Status Date / Time hydrocodone Allergy Unknown itching Verified 01/11/24 11:47 midazolam [From Versed] AdvReac Severe Combative Verified 01/11/24 11:47 Medications Home Medications Medication Instructions Recorded Confirmed Last Taken acetaminophen 500 mg tablet 500 mg PO QID PRN Pain 10/05/23 01/11/24 Unknown aspirin 81 mg capsule 81 mg PO HS 10/05/23 01/11/24 Unknown divalproex 500 mg tablet,delayed 1,000 mg PO HS 10/05/23 01/11/24 Unknown release (Depakote) divalproex 500 mg tablet,extended 500 mg PO QAM 10/05/23 01/11/24 Unknown release 24 hr empagliflozin 12.5 mg-linaglipt 1 tab PO QAM 10/05/23 01/11/24 Unknown 2.5 mg-metform ER 1,000 mg tablet,24hr (Trijardy XR) lisinopril 20 mg tablet 20 mg PO HS 10/05/23 01/11/24 Unknown magnesium 200 mg tablet 400 mg PO HS 10/05/23 01/11/24 Unknown pramipexole 0.5 mg tablet 1.5 mg PO HS 10/05/23 01/11/24 Unknown prazosin 5 mg capsule (Minipress) 5 mg PO HS 10/05/23 01/11/24 Unknown rosuvastatin 10 mg tablet 10 mg PO QAM 10/05/23 01/11/24 Unknown sertraline 100 mg tablet 50 mg PO QAM 10/05/23 01/11/24 Unknown solifenacin 5 mg tablet (Vesicare) 5 mg PO QAM 10/05/23 01/11/24 Unknown docusate sodium 100 mg capsule 100 mg PO BID 10/12/23 01/11/24 Unknown omeprazole 40 mg capsule,delayed 40 mg PO BID 10/12/23 01/11/24 Unknown release phenylephrine HCl 0.25 % rectal 1 supp [place] BID PRN Hemorrhoids 10/12/23 01/11/24 Unknown suppository polyethylene glycol 3350 17 17 g PO DAILY PRN Constipation 10/12/23 01/11/24 Unknown gram/dose oral powder tramadol 50 mg tablet 50 mg PO Q6H PRN pain, moderate 10/25/23 01/11/24 Unknown #30 tabs Vitamin D3 1 tab PO BID 01/11/24 01/11/24 Unknown Past Medical History Medical History Anxiety Bipolar disorder CAD (coronary artery disease) s/p [facility]) Claustrophobia COPD (chronic obstructive pulmonary disease) stable per pt; no meds Dementia is also his can sorter - patient will have periods of forgetfullness. Patient will become agitated easily, when patient has to wait can trigger the agitation. Depression Diabetes Well controlled and stable Dyslipidemia GERD (gastroesophageal reflux disease) Well controlled and stable Hemorrhoids Currently working with PCP to address- recently started on suppositories and stool softeners/Miralax History of anesthesia reaction - Versed - made RLS much worse/combative HTN (hypertension) Hx of myocardial infarction ~2012 card cath w/ stent to follow [facility] - follows w/ [facility] in [place] Medical marijuana use Nausea and vomiting after administration of anesthetic agent Panic attacks PTSD (post-traumatic stress disorder) Restless leg syndrome Sleep apnea CPAP; uses occasionally when he can tolerate Tremor of both hands Exercise / Class Metabolic Activity III < 4 Walking/Shop/Light housework (no chest pain or SOB with flat surface ambulation ) Past Family History Family History Other No family history of adverse response to anesthesia Past Surgical History Surgical History History of esophagogastroduodenoscopy (EGD) History of lumbar surgery 2019 - discectomy at the [facility] in [place] History of right hip replacement 06/2023 done at surgery center in [place] Hx of arthroscopy of shoulder torn rotator cuff Hx of cardiac catheterization ~2012- x 1 stent; [facility] Hx of colonoscopy Hx of skin graft multiple, for blevins S/P cervical spinal fusion C5-C7 - /can sorter states he has 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 Past Anesthesia History No Hx of Anesthesia Complications (with exception to PONV and adverse reaction to Versed ) and No Family Hx of Anesthesia Complications History of PONV No Hx of Motion Sickness and History of PONV (no issues with most cervical surgery ) Social History Smoking Status: Former smoker Do You Dip or Chew Tobacco: Yes (<1 can/day- advised on policy) Smoking End Date: 1981 Hx Alcohol Use: No Hx Substance Use: Yes (medical marijuana- PTSD- ADVISED) substance use type: marijuana Last Used Substance Other:: 01/11/24 Review of Systems Patient denies chest pain, shortness of breath, dyspnea on exertion, cough, wheezing, palpitations. No hx of seizures, stroke. No hx of blood clots or blood transfusions Physical Exam Vital Signs VITALS BP 145/87 P 78 TEMP 98.1 SP02 97% RESP 16 Constitutional no acute distress ENMT Mouth: no TMJ clicking Thyromental Distance: > or= 3.5 Finger Breadths (3.5) Mallampati Class: I Partial denture on bottom Neck + limited neck extension Respiratory normal respiratory effort; no respiratory distress Auscultation: lungs clear to auscultation bilaterally; no wheezes Cardiovascular Rate/Rhythm: regular rate and regular rhythm Heart Sounds: no murmur Vessels: no carotid bruit Musculoskeletal Spine: + pain with cervical ROM (mild stiffness ) Extremities: extremities normal to inspection Psychiatric Orientation: alert Lab Results Anesthesia Preop Results Results Anesthesia Widget: WBC 4.34 K/ul (4.8-10.8) L 01/17/24 Hgb 13.9 g/dl (14.0-18.0) L 01/17/24 Hct 43.1 % (42.0-52.0) 01/17/24 Plt 106 K/uL (130-400) L 01/17/24 Na 141 mmol/L (136-145) 01/17/24 K 4.2 mmol/L (3.5-5.1) 01/17/24 Cl 108 mmol/L (98-107) H 01/17/24 CO2 23 mmol/L (21-32) 01/17/24 BUN 14 mg/dl (6-23) 01/17/24 Creat 0.86 mg/dl (0.6-1.4) 01/17/24 Glucose Level 110 mg/dl (70-99(Fasting)) H 01/17/24 PT 10.6 Seconds (9.0-12.0) 01/17/24 PTT 31 Seconds (21-31) 01/17/24 INR 1.0 (0.9-1.1) 01/17/24 HA1c 6.6 % (4.5-5.6) H 01/17/24 Urine Color Yellow 01/17/24 Urine Appearance Clear (Clear) 01/17/24 Urine pH 5.5 (4.5-7.5) 01/17/24 Urine Specific Ebony 1.037 (1.000-1.030) H 01/17/24 Urine Protein Negative (Negative) 01/17/24 Urine Glucose (UA) 3+ (Negative) H 01/17/24 Urine Ketones Trace (Negative) H 01/17/24 Urine Blood Negative (Negative) 01/17/24 Urine Nitrite Negative (Negative) 01/17/24 Urine Bilirubin Negative (Negative) 01/17/24 Urine Urobilinogen Negative (Negative) 01/17/24 Urine Leukocyte Esterase Negative (Negative) 01/17/24 Blood Type O Positive 01/17/24 Antibody Screen NEGATIVE 01/17/24 Testing Laboratory Results Thrombocytopenia- chronic and stable from previous (PCP aware- no issues with 10/2023 cervical surgery) Electrocardiogram Date: 10/10/23 Findings: + NSR @ (79bpm) Incomplete RBBB Cannot rule out anterior infarct, age undetermined (EKG done at cardiac clearance appt 10/10/23; tolerated ACDF at [facility] on 10/25/23 without issues) Chest X-Ray Date: 10/12/23 Findings: + NAD Echocardiogram Date: 12/09/22 EF: 55-60% LV Function: normal Other Findings: + LVH (moderate/concentric ) and + diastolic dysfunction Mild aortic valve sclerosis without significant stenosis Mitral annular calcification No evidence of intracardiac shunt Stress Test Date: 10/25/22 Type: nuclear Pharmacologic stress nuclear study is normal. Normal SPECT perfusion imaging. No significant ischemia detected. No evidence of infarct. Stress EKG test results normal. LVEF 50-55%
[2024-02-06] MEDS ORDERED: PROPOFOL IV EMULSION 10 MG/ML 20 ML VIAL IV ONE ×2 (08:21→12:06)
[2024-02-06] MEDS ORDERED: fentaNYL citrate PF 100 MCG/2 ML VIAL ONE ×2 (08:21→10:39)
[2024-02-06] MEDS ORDERED: DEXAMETHASONE SOD INJ 4 MG/ML VIAL ONE (08:21)
[2024-02-06] MEDS ORDERED: LIDOCAINE 2% 2 ML VIAL/AMP(20MG/ML) INFIL ONE ×2 (08:21→08:22)
[2024-02-06] MEDS ORDERED: ONDANSETRON INJ 2 MG/ML 2 ML VIAL ONE (08:21)
[2024-02-06] MEDS ORDERED: ROCURONIUM BROMIDE 10 MG/ML 5 ML VIAL IV ONE ×15 (08:25→12:34)
[2024-02-06] MEDS: LR 60ML/HR IV SCH (08:32)
[2024-02-06] MEDS: ACETAMINOPHEN 500 MG TAB PO SCH (08:32)
[2024-02-06] MEDS: LR 15ML/HR IV SCH (08:32)
[2024-02-06] MEDS: CeleBREX 200 MG CAP PO SCH (08:33)
[2024-02-06] MEDS: GABAPENTIN 600 MG DOSE PO SCH (08:33)
[2024-02-06] MEDS ORDERED: HYDROmorphone INJ 2 MG/ML SYR/VIAL IV PRN (09:21)
[2024-02-06] MEDS ORDERED: ONDANSETRON INJ 2 MG/ML 2 ML VIAL IV PRN (09:21)
[2024-02-06] MEDS ORDERED: PROMETHAZINE HCL 6.25 MG in SODIUM CHLORIDE 0.9% 50 ML IV PRN (09:21)
--- NOTE | 2024-02-06 09:52 | History & Physical Bridge Note ---
Date of Service February 06, 2024 History & Physical Bridge Note I have examined the patient, reviewed the History & Physical and in the interval since the performance of the History & Physical I have noted the following changes of clinical significance: no changes noted
--- NOTE | 2024-02-06 09:53 | History & Physical Report ---
Date of Service February 06, 2024 Assessment & Plan (1) Neurogenic claudication due to lumbar spinal stenosis: History of Present Illness Chief Complaint: Back and bilateral leg pain Primary Care Provider: Jonathan Woods PA-C This is a 63 old male presents chronic persistent back and leg pain and failing course of nonoperative care is here for surgical invention. Allergies Allergy/AdvReac Type Severity Reaction Status Date / Time hydrocodone Allergy Unknown itching Verified 02/06/24 08:11 midazolam [From Versed] AdvReac Severe Combative Verified 02/06/24 08:11 Home Medications Medication Instructions Recorded Confirmed Type acetaminophen 500 mg tablet 500 mg PO QID PRN Pain 10/05/23 02/06/24 History aspirin 81 mg capsule 81 mg PO HS 10/05/23 02/06/24 History divalproex 500 mg tablet,delayed 1,000 mg PO HS 10/05/23 02/06/24 History release (Depakote) divalproex 500 mg tablet,extended 500 mg PO QAM 10/05/23 02/06/24 History release 24 hr empagliflozin 12.5 mg-linaglipt 1 tab PO QAM 10/05/23 02/06/24 History 2.5 mg-metform ER 1,000 mg tablet,24hr (Trijardy XR) lisinopril 20 mg tablet 20 mg PO HS 10/05/23 02/06/24 History magnesium 200 mg tablet 400 mg PO HS 10/05/23 02/06/24 History pramipexole 0.5 mg tablet 1.5 mg PO HS 10/05/23 02/06/24 History prazosin 5 mg capsule (Minipress) 5 mg PO HS 10/05/23 02/06/24 History rosuvastatin 10 mg tablet 10 mg PO QAM 10/05/23 02/06/24 History sertraline 100 mg tablet 50 mg PO QAM 10/05/23 02/06/24 History solifenacin 5 mg tablet (Vesicare) 5 mg PO QAM 10/05/23 02/06/24 History docusate sodium 100 mg capsule 100 mg PO BID 10/12/23 02/06/24 History omeprazole 40 mg capsule,delayed 40 mg PO BID 10/12/23 02/06/24 History release phenylephrine HCl 0.25 % rectal 1 supp DE BID PRN Hemorrhoids 10/12/23 02/06/24 History suppository polyethylene glycol 3350 17 17 g PO DAILY PRN Constipation 10/12/23 02/06/24 History gram/dose oral powder tramadol 50 mg tablet 50 mg PO Q6H PRN pain, moderate 10/25/23 02/06/24 Rx #30 tabs Vitamin D3 1 tab PO BID 01/11/24 02/06/24 History Past Med/Surg History Medical History (Updated 02/06/24 @ 09:52 by Zay Cr DO) Urinary bladder incontinence Claustrophobia Bipolar disorder 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 Patient will become agitated easily, when patient has to wait can trigger the agitation. Diabetes Well controlled and stable Hemorrhoids Currently working with PCP to address- recently started on suppositories and stool softeners/Miralax CAD (coronary artery disease) s/p stent x 1 in 2012 (by [place]) Medical marijuana use History of anesthesia reaction - Versed - made RLS much worse/combative Tremor of both hands Panic attacks Dyslipidemia Anxiety PTSD (post-traumatic stress disorder) Nausea and vomiting after administration of anesthetic agent Hx of myocardial infarction ~2012 card cath w/ stent to follow [facility] - follows w/ [facility] in [place] Sleep apnea CPAP; uses occasionally when he can tolerate COPD (chronic obstructive pulmonary disease) stable per pt; no meds Depression GERD (gastroesophageal reflux disease) Well controlled and stable HTN (hypertension) Restless leg syndrome Surgical History S/P cervical spinal fusion C5-C7 - /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 History of esophagogastroduodenoscopy (EGD) Hx of colonoscopy Hx of cardiac catheterization ~2012- x 1 stent; [facility] Hx of skin graft multiple, for blevins Hx of arthroscopy of shoulder torn rotator cuff History of lumbar surgery 2018 - discectomy at the [facility] in [place] History of right hip replacement 06/2023 done at surgery center in [place] Family History Other No family history of adverse response to anesthesia Social History Smoking Status: Former smoker Tobacco Type: Cigarettes and Smokeless Tobacco (Dip or Chew) Smoking End Date: 1981; Second Hand Exposure: No; Do You Dip or Chew Tobacco: Yes (<1 can/day- advised on policy); Tobacco Cessation Education Requested by Patient: No Hx Alcohol Use: No Hx Substance Use: Yes (medical marijuana- PTSD- ADVISED) Last Used Substance Other:: 01/11/24 Preferred Language: [place] Communication Ability: Effective Foreign Agent Required: No Beliefs That Will Affect Care: None Current Living Situation: Spouse Other Information That Helps Us Care for You: No Assistive Devices: CPAP, Denture - Lower, Glasses and Hearing Aid - Bilateral Physical Exam Physical Exam: Patient is alert and oriented Heart regular rhythm Lungs clear Results & Data Results & Data Vital Signs (Past 12 Hours) Vital Signs Temp Pulse Resp BP Pulse Ox O2 Del Method 02/06/24 08:19 36.5 C 63 20 135/79 93 Room Air
--- NOTE | 2024-02-06 09:53 | History & Physical Report ---
Date of Service February 06, 2024 Assessment & Plan (1) Neurogenic claudication due to lumbar spinal stenosis: Plan: L2-S1 decompression and fusion History of Present Illness Chief Complaint: Back and bilateral leg pain Primary Care Provider: Jonathan Woods PA-C This is a 63-year-old male presents chronic persistent back and leg pain and failing since course of nonoperative care is here for surgical invention. Allergies Allergy/AdvReac Type Severity Reaction Status Date / Time hydrocodone Allergy Unknown itching Verified 02/06/24 08:11 midazolam [From Versed] AdvReac Severe Combative Verified 02/06/24 08:11 Home Medications Medication Instructions Recorded Confirmed Type acetaminophen 500 mg tablet 500 mg PO QID PRN Pain 10/05/23 02/06/24 History aspirin 81 mg capsule 81 mg PO HS 10/05/23 02/06/24 History divalproex 500 mg tablet,delayed 1,000 mg PO HS 10/05/23 02/06/24 History release (Depakote) divalproex 500 mg tablet,extended 500 mg PO QAM 10/05/23 02/06/24 History release 24 hr empagliflozin 12.5 mg-linaglipt 1 tab PO QAM 10/05/23 02/06/24 History 2.5 mg-metform ER 1,000 mg tablet,24hr (Trijardy XR) lisinopril 20 mg tablet 20 mg PO HS 10/05/23 02/06/24 History magnesium 200 mg tablet 400 mg PO HS 10/05/23 02/06/24 History pramipexole 0.5 mg tablet 1.5 mg PO HS 10/05/23 02/06/24 History prazosin 5 mg capsule (Minipress) 5 mg PO HS 10/05/23 02/06/24 History rosuvastatin 10 mg tablet 10 mg PO QAM 10/05/23 02/06/24 History sertraline 100 mg tablet 50 mg PO QAM 10/05/23 02/06/24 History solifenacin 5 mg tablet (Vesicare) 5 mg PO QAM 10/05/23 02/06/24 History docusate sodium 100 mg capsule 100 mg PO BID 10/12/23 02/06/24 History omeprazole 40 mg capsule,delayed 40 mg PO BID 10/12/23 02/06/24 History release phenylephrine HCl 0.25 % rectal 1 supp DE BID PRN Hemorrhoids 10/12/23 02/06/24 History suppository polyethylene glycol 3350 17 17 g PO DAILY PRN Constipation 10/12/23 02/06/24 History gram/dose oral powder tramadol 50 mg tablet 50 mg PO Q6H PRN pain, moderate 10/25/23 02/06/24 Rx #30 tabs Vitamin D3 1 tab PO BID 01/11/24 02/06/24 History Past Med/Surg History Medical History (Updated 02/06/24 @ 09:52 by Zay Cr, ) Urinary bladder incontinence Claustrophobia 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 Patient will become agitated easily, when patient has to wait can trigger the agitation. Diabetes Well controlled and stable Hemorrhoids Currently working with PCP to address- recently started on suppositories and stool softeners/Miralax CAD (coronary artery disease) s/p stent x 1 in 2012 (by [place]) Medical marijuana use History of anesthesia reaction - Versed - made RLS much worse/combative Tremor of both hands Panic attacks Dyslipidemia Anxiety PTSD (post-traumatic stress disorder) Nausea and vomiting after administration of anesthetic agent Hx of myocardial infarction ~2012 card cath w/ stent to follow [facility] - follows w/ [facility] [place] [facility] in [place] Sleep apnea CPAP; uses occasionally when he can tolerate COPD (chronic obstructive pulmonary disease) stable per pt; no meds Depression GERD (gastroesophageal reflux disease) Well controlled and stable HTN (hypertension) Restless leg syndrome Surgical History S/P cervical spinal fusion C5-C7 - /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 History of esophagogastroduodenoscopy (EGD) Hx of colonoscopy Hx of cardiac catheterization ~2012- x 1 stent; [facility] Hx of skin graft multiple, for blevins Hx of arthroscopy of shoulder torn rotator cuff History of lumbar surgery 2018 - discectomy at the [facility] in [place] History of right hip replacement 06/2023 done at surgery center in [place] Family History Other No family history of adverse response to anesthesia Social History Smoking Status: Former smoker Tobacco Type: Cigarettes and Smokeless Tobacco (Dip or Chew) Smoking End Date: 1981; Second Hand Exposure: No; Do You Dip or Chew Tobacco: Yes (<1 can/day- advised on policy); Tobacco Cessation Education Requested by Patient: No Hx Alcohol Use: No Hx Substance Use: Yes (medical marijuana- PTSD- ADVISED) Last Used Substance Other:: 01/11/24 Preferred Language: Irish Communication Ability: Effective Fisher Hand Line Required: No Beliefs That Will Affect Care: None Current Living Situation: Spouse Other Information That Helps Us Care for You: No Assistive Devices: CPAP, Denture - Lower, Glasses and Hearing Aid - Bilateral Physical Exam Physical Exam: Patient is alert and oriented Heart regular rhythm Lungs clear Results & Data Results & Data Vital Signs (Past 12 Hours) Vital Signs Temp Pulse Resp BP Pulse Ox O2 Del Method 02/06/24 08:19 36.5 C 63 20 135/79 93 Room Air
[2024-02-06] MEDS: ceFAZolin 2000MG 2,000 MG/15 ML SYR IV SCH ×2 (10:22→20:59)
[2024-02-06] MEDS ORDERED: SUGAMMADEX SODIUM 200 MG/2 ML VIAL IV ONE (10:57)
[2024-02-06] MEDS: BUPIVACAINE/EPINEPHRINE 0.5% MPF 1:200,000 30 ML VIAL ONE (11:02)
[2024-02-06] MEDS: ceFAZolin 330 MG/ML 1 GM VIAL ONE (11:02)
[2024-02-06] MEDS ORDERED: HYDROmorphone INJ 2 MG/ML SYR/VIAL ONE (12:11)
[2024-02-06] MEDS ORDERED: ePHEDrine sulfate 50 MG/ML AMP ONE (12:23)
[2024-02-06] MEDS: FLOSEAL HEMOSTATIC MATRIX 10ML TOP ONE (13:27)
--- NOTE | 2024-02-06 13:34 | Operative Report ---
Post Operative Report Pre & Post Diagnosis Operation Date: 02/06/24 09:35 Pre-Op Diagnosis: Lumbar spinal stenosis with neurogenic claudication Obesity Post-Op Diagnosis: Same I identified the patient and participated in the time-out.: Yes Procedure Operation Date: 02/06/24 09:35 Actual Procedures #1 lumbar decompression bilateral medial facetectomies and foraminotomies L2-3, L3-L4, L4-5 and L5-S1. #2 posterior spinal fusion L2-S1. #3 placement posterior segmental instrumentation L2-S1. #4 interbody fusion L4-L5 L5-S1. #5 placement of Spira 14 x 26 mm x 2 at L4-L5 and 12 x 26 mm x 2 at L5-S1. #6 placement locally harvested morselized autograft and posterior gutters. Percent placed infuse collagen sponge, with Koros in the posterior lateral gutters and Morpheus bone graft in the interbody space. Surgeon Zay Cr, DO Nurse Assistant Rupa Gil Estimated Blood Loss 500 Findings See Below The patient is 5 foot 10 weighing over 105 kg with a BMI in excess of 33. Patient brought habitus did contribute to significant technical difficulty with positioning exposure and the procedure itself adding least 50% increased operative time. Specimens None Indications This is a 63-year-old male who presents above-mentioned diagnosis after failed course of nonoperative care is here for surgical invention. Description of Procedure Patient was met with identified informed consent obtained. Patient was then taken to the operative suite underwent patient placed in a prone position on the Stan table on top of the Nathan frame. All bony prominences well-padded eyes inspected to ensure no external pressure placed upon them. This point lumbar spine was prepped and draped in normal sterile fashion. Sharp dissection with the assistance of Bovie cautery from down to and exposing the lamina and transverse processes of L2 L3-L4-L5 and the sacral ala bilaterally. From a caudal cephalad fashion complete laminectomy of L5 was performed including bilateral medial facetectomies and foraminotomies, complete laminectomy of L4 was performed including bilateral medial facetectomies and foraminotomies, complete laminectomy of L3 including bilateral medial facetectomies and foraminotomies performed and lastly partial laminectomy of L2 was performed including aggressive bilateral medial facetectomies and foraminotomies addressing severe spinal stenosis. Pedicle screws then placed in L2 L3-L4-L5 and S1 levels bilaterally with assistance of fluoroscopy and appropriate sized corrine contoured and placed. By way the transforaminal approach on the right a discectomy of L5-S1 was performed endplates guided to subcortical bleeding bone and a 12 x 26 mm Spira cage filled with Morpheus bone graft tapped in position. Then proceeded to the left transforaminal region at L5-S1 completed the discectomy endplates guided to subcortical mean bone and a second 12 x 26 mm Spira cage filled with Morpheus bone graft tapped in position. Then proceeded L4-[address] a transforaminal approach on the left discectomy performed endplates guided to subcortically bone and a 14 x 26 mm Spira cage filled with Morpheus bone graft tapped in position. Then proceeded to the right transforaminal region at L4-5 and completed the discectomy followed by curetting endplates to subcortical bleeding bone and placing a second 14 x 26 mm Spira cage filled with Morpheus bone graft into position. The rods were then locked in final position bilaterally. The transverse processes of L2-L3 L4-5 and the sacral ala burred to subcortical bleeding bone. Infuse collagen sponge combined with Koros bone graft and local autograft placed in the posterior lateral gutters. 15 round SHEYLA drain inserted. The incision was then closed with 1 Vicryl in the fascia 2-0 Vicryl subcutaneously and 4 Monocryl for final skin closure. Steri-Strips sterile dressing placed. Patient awakened taken to PACU in stable condition. Please note spinal cord monitoring was utilized at the procedure no changes noted. Lastly Rupa Gil was present at the entire procedure and all the patient positioning complex portion of the surgery and final skin closure. I attest to the content of the Intraoperative Record and any orders documented therein. Any exceptions are noted below.
--- NOTE | 2024-02-06 13:54 | Fluoroscopy Report ---
FL lumbar spine 2-3V CLINICAL HISTORY: L2-S1 Decompression/fusion COMPARISON STUDY: None. FLUOROSCOPY TIME: 38 seconds FLUOROSCOPY IMAGES: 3 Ka,r: 36.3 mGy FINDINGS: Posterior decompression and fusion from L2 through S1 with pedicle screws and rods. The ang[place] dware appears intact. There are L4-L5 and L5-S1 disc spacers in place. IMPRESSION: Fluoroscopic assistance as above. ACT 112: Negative or not required by law. Electronically signed by: Pieter Arshad M.D. 02/06/2024 1:53 PM
[2024-02-06] MEDS: fentaNYL citrate PF 100 MCG/2 ML VIAL IV PRN (14:19)
--- NOTE | 2024-02-06 14:35 | Anesthesiology Progress Note ---
Date of Service February 06, 2024 Anesthesia Post Procedure Vital Signs Vital Signs: Temp Pulse Resp BP Pulse Ox O2 Del Method O2 Flow Rate 02/06/24 14:30 93 H 12 106/80 97 Nasal Cannula 2 02/06/24 14:20 90 15 140/84 95 Nasal Cannula 2 02/06/24 14:10 91 H 13 146/93 H 95 Oxymask 10 02/06/24 14:00 89 14 118/80 97 Oxymask 10 02/06/24 13:52 36.9 C 91 H 13 102/61 97 Oxymask 10 02/06/24 08:19 36.5 C 63 20 135/79 93 Room Air Pain Intensity Back: Pain Intensity: 6 Transfer of Care Handoff Completed per policy Notes Mental Status: alert / awake / arousable and participated in evaluation Patient Amnestic to Procedure: Yes Nausea / Vomiting: adequately controlled Pain: adequately controlled Airway Patency, RR, SpO2: stable & adequate BP & HR: stable & adequate Hydration State: stable & adequate Anesthetic Complications: no major complications apparent
[2024-02-06] MEDS ORDERED: NALOXONE HCL 0.4 MG/1 ML VIAL/CARP IV PRN (15:25)
[2024-02-06] MEDS ORDERED: METOCLOPRAMIDE HCL INJ 5 MG/ML 2 ML VIAL IV PRN (15:25)
[2024-02-06] MEDS ORDERED: SOD PHOSPHATE/SOD BIPHOSPHATE ENEMA 132 ML BTL PR PRN (15:25)
[2024-02-06] MEDS ORDERED: FAMOTIDINE 20 MG TAB PO PRN (15:25)
[2024-02-06] MEDS ORDERED: PHARMACY GLYCEMIC MGMT CONSULT PRN (15:25)
[2024-02-06] MEDS ORDERED: LORazepam 0.5 MG TAB PO PRN (15:25)
[2024-02-06] MEDS ORDERED: hydrOXYzine HCl 25 MG TAB PO PRN (15:25)
[2024-02-06] MEDS ORDERED: bisacodyL 10 MG SUPP PR PRN (15:25)
[2024-02-06] MEDS ORDERED: ONDANSETRON 4 MG OD TAB PO PRN (15:25)
[2024-02-06] MEDS ORDERED: LORazepam 0.5 MG in SYRINGE 0.25 ML IV PRN (15:25)
[2024-02-06] MEDS ORDERED: traMADol HCL 50 MG TABLET PO PRN (15:25)
[2024-02-06] MEDS ORDERED: ACETAMINOPHEN 500 MG TAB PO PRN (15:25)
[2024-02-06] MEDS ORDERED: ALUMINUM/MAGNESIUM SUSP 30 ML UDC PO PRN (15:25)
[2024-02-06] MEDS ORDERED: DO NOT ADMINISTER FLU VACCINE PRN (15:25)
[2024-02-06] MEDS ORDERED: ACETAMINOPHEN 1,000 MG/100 ML VIAL IV PRN (15:25)
[2024-02-06] MEDS ORDERED: diphenhydrAMINE Capsule 25 MG CAP PO PRN (15:25)
[2024-02-06] MEDS ORDERED: DO NOT ADMINISTER PNEUMOCOCCAL VACCINE PRN (15:25)
[2024-02-06] MEDS ORDERED: MAGNESIUM HYDROXIDE SUSP 30 ML UDC PO PRN (15:25)
[2024-02-06] MEDS ORDERED: PROMETHAZINE HCL 12.5 MG in SODIUM CHLORIDE 0.9% 50 ML IV PRN (15:25)
[2024-02-06] MEDS ORDERED: CARBOHYDRATES FOR HYPOGLYCEMIA PO PRN (16:15)
[2024-02-06] MEDS ORDERED: GLUCOSE 10 TAB/TUBE PO PRN (16:15)
[2024-02-06] MEDS ORDERED: DEXTROSE 50% 50 ML SYRINGE IV PRN (16:15)
[2024-02-06] MEDS ORDERED: GLUCAGON FOR INJ 1 MG VIAL IM PRN (16:15)
[2024-02-06] MEDS ORDERED: GLUCOSE 40% GEL 15 GM TUBE PO PRN (16:15)
--- NOTE | 2024-02-06 16:39 | Consultation ---
Date of Consultation February 06, 2024 Assessment & Plan (1) Neurogenic claudication due to lumbar spinal stenosis: Plan Mr. Uribe is a 63 year old male that presented to the [facility] for an elective C5-C7 ACDF after failed conservative management under the care of Dr. Cr. Intra-operatively EBL 10mL. Additional PMH includes: CAD s/p AMI with stent placement in 2012, DM, PTSD, HTN, depression and overactive bladder. He has had a hip replacement recently and also has had lumbar surgeries in [place] years ago. Consultation for medical management. #Neurogenic claudication s/p l2-s1 decompression -Per ortho for pain control, wound care, anticoagulation and activities. Monitor H&H, pre op Hgb on 01/16 is 13.9 Obtain CBC in am #Cervical stenosis of spinal canal: 10/2023 s/p C5-C7 ACDF with Dr. Cr. #CAD s/p BRUCE: #HTN: Chronic 2012 stent x1 at [facility] Takes ASA daily;continue Takes Lisinopril; continue denies CP/SOB #HLD: Chronic Takes Rosuvastatin;continue #Bipolar Disorder: Chronic Takes Depakote 1000mg qhs; continue #Depression: #PTSD: Chronic Takes Sertraline;continue He does use medical marijuana for PTSD/anxiety. PTSD is related to his miliary experiences. Triggers include loud noises, beeping, etc. states pt anxious and wishing to be discharged as soon as possible #Diabetes: Chronic Takes Trijardy; hold while inpt and surgical team has pt placed on SSI FSBS ACHS Most recent A1C: 10/12 6.4 resume home medications at discharge #RLS: Chronic Takes pramipexole;continue #OAB: Chronic Takes Vesicare;continue Disposition: PCP: PA Code Status: Full Code VTE Prophylaxis: per admitting team I spent a total of 60 minutes coordinating, documenting, and providing care for this patient excluding time spent in the performance of separately billed services. All of the aforementioned completed while collaborating with the assigned attending physician for a full treatment plan. Please see their addendum for further details. History of Present Illness Reason for Consultation: Med consult Attending Physician: Zay Cr DO History of Present Illness Mr. Uribe is a 63 year old gentleman that presented to the [facility] for lumbar decompression and fusion with Dr. Cr. Intra-operatively EBL 500mL. Additional PMH includes: CAD s/p AMI with stent placement in 2012, DM, PTSD, HTN, depression and overactive bladder. He has had a right hip replacement in 2022, C-spine ACDF, also has had prior lumbar surgeries in [place] years ago. He quit smoking cigarettes in the . He does use medical marijuana for PTSD/anxiety. He reportedly has COPD that is stable without medications and has a CPAP machine at home for sleep apnea. Patient denies numbness and tingling, SOB, chest pain, palpitations, abdominal pain or tenderness. He is sitting upright in his hospital bed, AAOx4.He is saturating in mid90s on 2LNC and tolerating well. He reports some pain and is due for medication at time of exam, but reports im provement in radiculopathic pain that was radiating down the legs prior to surgery. [facility] Hospitalist service consulted for post operative medical management. Thank you kindly for this consultation. Allergies Allergy/AdvReac Type Severity Reaction Status Date / Time hydrocodone Allergy Unknown itching Verified 02/06/24 08:11 midazolam [From Versed] AdvReac Severe Combative Verified 02/06/24 08:11 Home Medications Medication Instructions Recorded Confirmed Type acetaminophen 500 mg tablet 500 mg PO QID PRN Pain 10/05/23 02/06/24 History aspirin 81 mg capsule 81 mg PO HS 10/05/23 02/06/24 History divalproex 500 mg tablet,delayed 1,000 mg PO HS 10/05/23 02/06/24 History release (Depakote) divalproex 500 mg tablet,extended 500 mg PO QAM 10/05/23 02/06/24 History release 24 hr empagliflozin 12.5 mg-linaglipt 1 tab PO QAM 10/05/23 02/06/24 History 2.5 mg-metform ER 1,000 mg tablet,24hr (Trijardy XR) lisinopril 20 mg tablet 20 mg PO HS 10/05/23 02/06/24 History magnesium 200 mg tablet 400 mg PO HS 10/05/23 02/06/24 History pramipexole 0.5 mg tablet 1.5 mg PO HS 10/05/23 02/06/24 History prazosin 5 mg capsule (Minipress) 5 mg PO HS 10/05/23 02/06/24 History rosuvastatin 10 mg tablet 10 mg PO QAM 10/05/23 02/06/24 History sertraline 100 mg tablet 50 mg PO QAM 10/05/23 02/06/24 History solifenacin 5 mg tablet (Vesicare) 5 mg PO QAM 10/05/23 02/06/24 History docusate sodium 100 mg capsule 100 mg PO BID 10/12/23 02/06/24 History omeprazole 40 mg capsule,delayed 40 mg PO BID 10/12/23 02/06/24 History release phenylephrine HCl 0.25 % rectal 1 supp ND BID PRN Hemorrhoids 10/12/23 02/06/24 History suppository polyethylene glycol 3350 17 17 g PO DAILY PRN Constipation 10/12/23 02/06/24 History gram/dose oral powder tramadol 50 mg tablet 50 mg PO Q6H PRN pain, moderate 10/25/23 02/06/24 Rx #30 tabs Vitamin D3 1 tab PO BID 01/11/24 02/06/24 History oxycodone 5 mg tablet 5 mg PO Q6H PRN pain #30 tabs 02/06/24 Rx tramadol 50 mg tablet 50 mg PO Q6H PRN pain, moderate 02/06/24 Rx #30 tabs Patient History Medical History (Updated 02/06/24 @ 09:52 by Zay Cr, ) Urinary bladder incontinence Claustrophobia Bipolar disorder 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 Patient will become agitated easily, when patient has to wait can trigger the agitation. Diabetes Well controlled and stable Hemorrhoids Currently working with PCP to address- recently started on suppositories and stool softeners/Miralax CAD (coronary artery disease) s/p stent [facility] ([facility]) Medical marijuana use History of anesthesia reaction - Versed - made RLS much worse/combative Tremor of both hands Panic attacks Dyslipidemia Anxiety PTSD (post-traumatic stress disorder) Nausea and vomiting after administration of anesthetic agent Hx of myocardial infarction ~2012 card cath w/ stent to follow [facility] - follows w/ [facility] in [place] Sleep apnea CPAP; uses occasionally when he can tolerate COPD (chronic obstructive pulmonary disease) stable per pt; no meds Depression GERD (gastroesophageal reflux disease) Well controlled and stable HTN (hypertension) Restless leg syndrome Surgical History S/P cervical spinal fusion C5-C7 - /human performance professor states he has 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 History of esophagogastroduodenoscopy (EGD) Hx of colonoscopy Hx of cardiac catheterization ~2013- x 1 stent; [facility] Hx of skin graft multiple, for blevins Hx of arthroscopy of shoulder torn rotator cuff History of lumbar surgery 2019 - discectomy at the [facility] History of right hip replacement 06/2023 done at surgery center in [place] Family History Other No family history of adverse response to anesthesia Social History Smoking Status: Former smoker Tobacco Type: Cigarettes and Smokeless Tobacco (Dip or Chew) Smoking End Date: 1981; Second Hand Exposure: No; Do You Dip or Chew Tobacco: Yes (<1 can/day- advised on policy); Tobacco Cessation Education Requested by Patient: No Hx Alcohol Use: No Hx Substance Use: Yes (medical marijuana- PTSD- ADVISED) Last Used Substance Other:: 01/11/24 Preferred Language: Palestinian Communication Ability: Effective Credentialing Coordinator Required: No Beliefs That Will Affect Care: None Current Living Situation: Spouse Other Information That Helps Us Care for You: No Assistive Devices: CPAP, Denture - Lower, Glasses and Hearing Aid - Bilateral Review of Systems Review of Systems: All systems reviewed & are unremarkable except as noted in Subjective Physical Exam Constitutional: WD/WN, vitals as above (yadira drain in place with sanguineous output ) Respiratory: normal respiratory effort, lungs clear to auscultation Cardiovascular: RRR, no murmur, no edema Gastrointestinal (Abdomen): normal bowel sounds, soft, nontender, no hepatosplenomegaly Results & Data Vital Signs (Past 12 Hours) Vital Signs Temp Pulse Resp BP Pulse Ox O2 Del Method O2 Flow Rate 02/06/24 16:14 36.5 C 89 16 132/81 96 Nasal Cannula 2 02/06/24 14:50 94 H 15 137/89 95 Nasal Cannula 3 02/06/24 14:40 36.4 C L 93 H 12 129/96 94 Nasal Cannula 3 02/06/24 14:30 93 H 12 106/80 97 Nasal Cannula 2 02/06/24 14:20 90 15 140/84 95 Nasal Cannula 2 02/06/24 14:10 91 H 13 146/93 H 95 Oxymask 10 02/06/24 14:00 89 14 118/80 97 Oxymask 10 02/06/24 13:52 36.9 C 91 H 13 102/61 97 Oxymask 10 02/06/24 08:19 36.5 C 63 20 135/79 93 Room Air Medications Administered Home Medications Medication Instructions Recorded Confirmed Last Taken acetaminophen 500 mg tablet 500 mg PO QID PRN Pain 10/05/23 02/06/24 02/01/24 aspirin 81 mg capsule 81 mg PO HS 10/05/23 02/06/24 02/05/24 21:00 divalproex 500 mg tablet,delayed 1,000 mg PO HS 10/05/23 02/06/24 02/05/24 21:00 release (Depakote) divalproex 500 mg tablet,extended 500 mg PO QAM 10/05/23 02/06/24 02/06/24 06:30 release 24 hr empagliflozin 12.5 mg-linaglipt 1 tab PO QAM 10/05/23 02/06/24 02/02/24 2.5 mg-metform ER 1,000 mg tablet,24hr (Trijardy XR) lisinopril 20 mg tablet 20 mg PO HS 10/05/23 02/06/24 02/05/24 21:00 magnesium 200 mg tablet 400 mg PO HS 10/05/23 02/06/24 02/05/24 21:00 pramipexole 0.5 mg tablet 1.5 mg PO HS 10/05/23 02/06/24 02/05/24 21:00 prazosin 5 mg capsule (Minipress) 5 mg PO HS 10/05/23 02/06/24 02/05/24 21:00 rosuvastatin 10 mg tablet 10 mg PO QAM 10/05/23 02/06/24 02/05/24 07:00 sertraline 100 mg tablet 50 mg PO QAM 10/05/23 02/06/24 02/06/24 06:30 solifenacin 5 mg tablet (Vesicare) 5 mg PO QAM 10/05/23 02/06/24 02/06/24 06:30 docusate sodium 100 mg capsule 100 mg PO BID 10/12/23 02/06/24 02/05/24 21:00 omeprazole 40 mg capsule,delayed 40 mg PO BID 10/12/23 02/06/24 02/06/24 06:30 release phenylephrine HCl 0.25 % rectal 1 supp ND BID PRN Hemorrhoids 10/12/23 02/06/24 Unknown suppository polyethylene glycol 3350 17 17 g PO DAILY PRN Constipation 10/12/23 02/06/24 Unknown gram/dose oral powder tramadol 50 mg tablet 50 mg PO Q6H PRN pain, moderate 10/25/23 02/06/24 Unknown #30 tabs Vitamin D3 1 tab PO BID 01/11/24 02/06/24 02/06/24 06:30 oxycodone 5 mg tablet 5 mg PO Q6H PRN pain #30 tabs 02/06/24 Unknown tramadol 50 mg tablet 50 mg PO Q6H PRN pain, moderate 02/06/24 Unknown #30 tabs Active Medications Generic Name Dose Route Start Last Admin Trade Name Freq PRN Reason Stop Dose Admin Hydromorphone HCl 1 mg 02/06/24 15:25 02/06/24 17:16 Hydromorphone Inj 1 Mg/Ml Syringe IV 02/20/24 15:24 1 mg Q3H PRN Administration SEVERE Pain (Scale 7,8,9,10) Lactated Ringer's 1,000 mls @ 150 mls/hr 02/06/24 15:25 02/06/24 17:01 Lr IV 03/07/24 15:24 150 mls/hr .Q6H40M PEDRO Administration Insulin Aspart 0 units 02/06/24 16:30 02/06/24 18:14 Insulin Aspart Per Unit Charge SC 03/07/24 16:29 3 units ACHS PEDRO Administration
[2024-02-06] MEDS: LACTATED RINGER'S 1,000 ML IV SCH (17:01)
[2024-02-06] MEDS: LANTUS PER UNIT CHARGE SC ONE ×2 (17:05→18:14)
[2024-02-06] MEDS: HYDROmorphone INJ 1 MG/ML SYRINGE IV PRN (17:16)
[2024-02-06] MEDS: INSULIN ASPART PER UNIT CHARGE SC SCH (18:14)
[2024-02-06] MEDS: PRAZOSIN HCL 1 MG CAP PO SCH (21:02)
[2024-02-06] MEDS: DOCUSATE SODIUM/SENNA 50/8.6MG TAB PO SCH (21:04)
[2024-02-06] MEDS: lisinopril 20 MG TAB PO SCH (21:04)
[2024-02-06] MEDS: DIVALPROEX DELAY RELEASE 500 MG TAB PO SCH (21:05)
[2024-02-06] MEDS: DOCUSATE SODIUM 100 MG CAP PO SCH (21:05)
[2024-02-06] MEDS: ASPIRIN 81 MG ECTAB PO SCH (21:05)
[2024-02-06] MEDS: PANTOprazole 40 MG TAB PO SCH (21:05)
[2024-02-06] MEDS: MAGNESIUM OXIDE 400 MG TAB PO SCH (21:06)
[2024-02-06] MEDS: PRAMIPEXOLE DIHYDROCHLO 0.5 MG TAB PO SCH (21:06)
[2024-02-06] MEDS: CHOLECALCIFEROL 10 MCG (400 UNITS) TAB PO SCH (21:06)
[2024-02-07] MEDS: ONDANSETRON INJ 2 MG/ML 2 ML VIAL IV PRN (00:47)
[2024-02-07] MEDS: HYDROmorphone INJ 0.5 MG/0.5 ML SYR IV PRN (04:06)
[2024-02-07] MEDS: POLYETHYLENE (MIRALAX) 17 GM PACK PO SCH (04:11)
[2024-02-07] MEDS: oxyCODONE HCL IR 5 MG TAB (IMMEDIATE RELEASE) PO PRN (07:34)
[2024-02-07 07:36] LABS: BUN Creatinine Ratio 14.5 (10-20); Calcium 8.3 mg/dl (8.6-10.3); Creatinine Clr Calc Pharmacy 131.3 ml/min; Est GFR (African American) 116.3 ml/min; Est GFR (Non-African American) 100.3 ml/min; Potassium 4.8 mmol/L (3.5-5.1)
[2024-02-07 07:46] LABS: Basophils # (auto) 0.01 K/uL (0.00-0.20); Basophils % (auto) 0.2 %; Eosinophils # (auto) 0.01 K/uL (0.00-0.50); Eosinophils % (auto) 0.2 %; Hematocrit (blood only) 31.3 % (42.0-52.0); Hemoglobin 9.9 g/dl (14.0-18.0); Immature Granulocytes # (auto) 0.01 K/uL (0.01-0.20); Immature Granulocytes % (auto) 0.2 %; Lymphocytes # (auto) 0.62 K/uL (1.20-3.40); Lymphocytes % (auto) 12.5 %; Mean Corpuscular Hemoglobin 29.2 pg (25.0-34.0); Mean Corpuscular Hgb Conc 31.6 g/dL (32.0-36.0); Mean Corpuscular Volume 92.3 fL (80.0-100.0); Mean Platelet Volume 9.6 fL (9.4-12.4); Monocytes # (auto) 0.36 K/uL (0.11-0.59); Monocytes % (auto) 7.3 %; Neutrophils # (auto) 3.95 K/uL (1.40-6.50); Neutrophils % (auto) 79.6 %; Platelet Count 77 K/uL (130-400); RDW Coefficient of Variation 13.4 % (11.5-14.5); RDW Standard Deviation 45.1 fL (36.4-46.3); Red Blood Count 3.39 M/uL (4.70-6.10); White Blood Count 4.96 K/ul (4.8-10.8)
[2024-02-07] MEDS: dexAMETHasone 6 MG in SYRINGE 0 ML IV SCH (08:46)
[2024-02-07] MEDS: LANTUS PER UNIT CHARGE SC SCH (08:53)
[2024-02-07] MEDS: OXYBUTYNIN CHLORIDE XL 5 MG TABCR PO SCH (10:03)
[2024-02-07] MEDS: ROSUVASTATIN CALCIUM 10 MG TAB PO SCH (10:03)
[2024-02-07] MEDS: SERTRALINE HCL 50 MG TABLET PO SCH (10:03)
[2024-02-07] MEDS: DIVALPROEX EXTENDED RELEASE 500 MG TAB PO SCH (10:04)
--- NOTE | 2024-02-07 10:13 | Pharmacy Report ---
Pharmacy Glycemic Short Note 2 - Date of Service February 07, 2024 - Glycemic Short BSG Results (Last 24 hours): 02/06/24 02/06/24 02/06/24 13:58 16:34 20:42 Glucose POC Glucose 137 H 151 H 158 H 02/07/24 02/07/24 06:38 07:29 Glucose 162 H POC Glucose 144 H OUTPATIENT ANTIDIABETIC REGIMEN: * Trijardy XR 12.5-2.5-1000mg PO daily * A1c 6.6% 01/17/24 ASSESSMENT: * 63 yo M POD1 L2-S1 decompression and fusion, Type 2 DM on Trijardy XR at home. * Oral agents are not recommended for inpatient use d/t drug interactions, changing PO intake, and difficulty titrating for acute hyper/hypoglycemia. ADA recommends re-initiating outpatient oral agents 1-2 days prior to discharge if/when appropriate if they were held on admission. * Will hold oral agents for admission and utilize SQ basal bolus insulin regimen which is the recommended regimen for inpatient glycemic control. * Patient received 24 units of insulin yesterday, 20 units basal, euglycemic. * Patient received dexamethasone 4mg yesterday, schedule 6mg IV x3 days, will tighten CR, continue other insulin dosing and titrate to maintain goal blood sugar. PLAN FOR INPATIENT GLYCEMIC CONTROL: * Hold outpatient oral diabetes medications * Basal insulin * Lantus 20 units SQ Daily * Bolus insulin * NovoLog per scale ACHS or Q6hrs while NPO * Goal Range: Low 110 mg/dL - High 140 mg/dL * Correction Factor: 20 mg/dL/unit * Nutritional / Prandial insulin per carb ratio of 1 unit per 5 grams CHO consumed
--- NOTE | 2024-02-07 10:43 | Orthopedic Progress Note ---
Date of Service February 07, 2024 Assessment & Plan (1) Neurogenic claudication due to lumbar spinal stenosis: Plan: Patient will initiate physical therapy today. Will maintain the Johnson until tomorrow. Hopefully discharge home later this weekend. Admission and Anticipated Discharge Date Admission Date: February 06, 2024 Subjective Back pain controlled leg pain improved Physical Exam Physical Exam: Patient is currently in bed. Is comfortable. Is good strength testing. Results & Data Vital Signs (Past 12 Hours) Vital Signs Temp Pulse Resp BP Pulse Ox O2 Del Method O2 Flow Rate 02/07/24 07:15 36.7 C 93 H 18 109/65 93 Nasal Cannula 2 02/07/24 03:15 93 Room Air 02/07/24 03:06 37.0 C 96 H 16 143/78 H 94 Nasal Cannula 2 02/06/24 23:20 36.4 C L 90 16 100/66 92 Nasal Cannula 2 Queries Orthopedic Spine Obesity: Yes
--- NOTE | 2024-02-07 12:55 | Hospitalist Progress Note ---
Date of Service February 07, 2024 Assessment & Plan (1) Neurogenic claudication due to lumbar spinal stenosis: (2) Acute blood loss as cause of postoperative anemia: (3) Diabetes: Plan Mr. Uribe is a 63 year old male that presented to the [facility] for an elective C5-C7 ACDF after failed conservative management under the care of Dr. Cr. Intra-operatively EBL 10mL. Additional PMH includes: CAD s/p AMI with stent placement in 2012, DM, PTSD, HTN, depression and overactive bladder. He has had a hip replacement recently and also has had lumbar surgeries in [place] years ago. Consultation for medical management. #Neurogenic claudication s/p l2-s1 decompression -Per ortho for pain control, wound care, anticoagulation and activities. #Acute blood loss anemia as cause of post operative anemia, expected Monitor H&H, pre op Hgb on 01/16 is 13.9, now 9.9 monitor hgb and yadira output repeat cbc in a.m. #Post operative nausea and vomiting encourage pt to take pain medications with food, pills on empty stomach likely to cause nausea also encourage adequate pain control to improve nausea will re eval, he is getting zofran #Thrombocytopenia plt 77, ct was 106 on 01/16 and low in 2022 may be dilutional in setting of surgery will repeat cbc, cmp in a.m. also obtain peripheral smear he should have this investigated as outpatient or sooner if cts worsen while inpt he is also on depakote and ASA #Cervical stenosis of spinal canal: 10/2023 s/p C5-C7 ACDF with Dr. Cr. #CAD s/p BRUCE: #HTN: Chronic 2012 stent x1 at [facility] Takes ASA daily;continue Takes Lisinopril; continue #HLD: Chronic Takes Rosuvastatin;continue #Bipolar Disorder: Chronic Takes Depakote 1000mg qhs; continue #Depression: #PTSD: Chronic Takes Sertraline;continue He does use medical marijuana for PTSD/anxiety. PTSD is related to his miliary experiences. Triggers include loud noises, beeping, etc. states pt anxious and wishing to be discharged as soon as possible #Diabetes: Chronic Takes Trijardy; hold while inpt and surgical team has pt placed on SSI FSBS ACHS Most recent A1C: 10/12 6.4 resume home medications at discharge #RLS: Chronic Takes pramipexole;continue #OAB: Chronic Takes Vesicare;continue Disposition: PCP: [place] Code Status: Full Code VTE Prophylaxis: per admitting team I spent a total of 45 minutes coordinating, documenting, and providing care for this patient excluding time spent in the performance of separately billed services. All of the aforementioned completed while collaborating with the assigned attending physician for a full treatment plan. Please see their addendum for further details. Admission and Anticipated Discharge Date Admission Date: February 06, 2024 Supervising Physician Co-Signing Physician Notes I have discussed the case with the collaborating advanced practitioner. I agree with the above progress noted. I have reviewed and confirmed the patients medical history, the findings on physical examination, and the patients diagnosis and treatment plan with Ruby DOWNS and agree with the information documented. I have reviewed the advanced practitioner's documentation, and I agree with, and take responsibility for the plan of care Subjective Patient was seen and examined in 324. Follow-up lumbar surgery. His is at bedside. He is currently complaining of nausea. He tried to eat a banana but vomited it up. He also took OxyContin this morning on an empty stomach. He complains of 10/10 back pain. states incision has had a lot of drainage. Review of Systems Review of Systems: All systems reviewed & are unremarkable except as noted in HPI & below Physical Exam Physical Exam: Gen: WD/WN, appears ill, M, NAD, A&O x3 HEENT: Normocephalic, atraumatic, conjunctivae moist, sclerae anicteric, mucous membranes moist. Lung: Clear to Auscultation bilaterally, no wheezes/rales/rhonchi Heart: Regular rate, regular rhythm, no murmurs, rubs, or gallops Abdomen: Soft, NT, ND +BS x 4 Extremities: No edema, lumbar dressing cdi with yadira drain serosang drainage Skin: Warm, no rash, negative turgor. Results & Data Results & Data Vital Signs (Past 12 Hours) Vital Signs Temp Pulse Resp BP Pulse Ox O2 Del Method O2 Flow Rate 02/07/24 07:15 36.7 C 93 H 18 109/65 93 Nasal Cannula 2 02/07/24 03:15 93 Room Air 02/07/24 03:06 37.0 C 96 H 16 143/78 H 94 Nasal Cannula 2 Laboratory Results Short CBC 02/07/24 Range/Units 06:38 WBC 4.96 (4.8-10.8) K/ul Hgb 9.9 L (14.0-18.0) g/dl Hct 31.3 L (42.0-52.0) % Plt Count 77 L (130-400) K/uL BMP 02/07/24 06:38 Sodium 137 Potassium 4.8 Chloride 104 Carbon Dioxide 28 BUN 10 Creatinine 0.69 Glucose 162 H Calcium 8.3 L Medications Administered Current Inpatient Medications Acetaminophen (Acetaminophen 500 Mg Tab) 1,000 mg PO Q8H PRN PRN Reason: MILD Pain Scale 1,2,3 & Pre PT Stop: 03/07/24 15:24 Al Hydrox/Mg Hydrox/Simethicone (Aluminum/Magnesium Susp 30 Ml Udc) 30 ml PO Q6H PRN PRN Reason: Dyspepsia Stop: 03/07/24 15:24 Aspirin (Aspirin 81 Mg Ectab) 81 mg PO HS [facility] Stop: 03/07/24 20:59 Last Admin: 02/06/24 21:05 Dose: 81 mg Bisacodyl (Bisacodyl 10 Mg Supp) 10 mg ID DAILY PRN PRN Reason: Constipation Stop: 03/07/24 15:24 Dextrose (Dextrose 50% 50 Ml Syringe) 25 - 50 ml IV UD PRN; Protocol PRN Reason: Hypoglycemia Protocol Stop: 03/07/24 16:14 Diphenhydramine HCl (Diphenhydramine Capsule 25 Mg Cap) 25 mg PO Q6H PRN PRN Reason: Allergic Rhinitis/Insomnia Stop: 03/07/24 15:24 Divalproex Sodium (Divalproex Delay Release 500 Mg Tab) 1,000 mg PO HS [facility] Stop: 03/07/24 20:59 Last Admin: 02/06/24 21:05 Dose: 1,000 mg Divalproex Sodium (Divalproex Extended Release 500 Mg Tab) 500 mg PO QA [facility] Stop: 03/08/24 08:59 Last Admin: 02/07/24 10:04 Dose: 500 mg Docusate Sodium (Docusate Sodium 100 Mg Cap) 100 mg PO BID [facility] Stop: 03/07/24 20:59 Last Admin: 02/07/24 10:03 Dose: 100 mg Famotidine (Famotidine 20 Mg Tab) 20 mg PO Q12H PRN PRN Reason: Dyspepsia Stop: 03/07/24 15:24 Glucagon (Glucagon For Inj 1 Mg Vial) 1 mg IM UD PRN; Protocol PRN Reason: Hypoglycemia Protocol Stop: 03/07/24 16:14 Glucose (Glucose 40% Gel 15 Gm Tube) 15 - 30 gm PO UD PRN; Protocol PRN Reason: Hypoglycemia Protocol Stop: 03/07/24 16:14 Glucose (Glucose 10 Tab/Tube) 4 - 8 tab PO UD PRN; Protocol PRN Reason: Hypoglycemia Protocol Stop: 03/07/24 16:14 Hydromorphone HCl (Hydromorphone Inj 0.5 Mg/0.5 Ml Syr) 0.5 mg IV Q3H PRN PRN Reason: MODERATE Pain (Scale 4,5,6) & Pre PT Stop: 02/20/24 15:24 Last Admin: 02/07/24 04:06 Dose: 0.5 mg Hydromorphone HCl (Hydromorphone Inj 1 Mg/Ml Syringe) 1 mg IV Q3H PRN PRN Reason: SEVERE Pain (Scale 7,8,9,10) Stop: 02/20/24 15:24 Last Admin: 02/07/24 09:02 Dose: 1 mg Hydroxyzine HCl (Hydroxyzine Hcl 25 Mg Tab) 25 mg PO Q8H PRN PRN Reason: Anxiety Stop: 03/07/24 15:24 Promethazine HCl 12.5 mg/ (Sodium Chloride) 50.5 mls @ 202 mls/hr IV Q6H PRN PRN Reason: Nausea &/or Vomiting Stop: 03/07/24 15:24 Acetaminophen (Ofirmev) 1,000 mg in 100 mls @ 400 mls/hr IV Q8H PRN PRN Reason: Pain Rating 1-3 & Pre PT Stop: 02/07/24 15:26 Lorazepam 0.5 mg/ Syringe 0.5 mls @ 2 mls/min IV Q8H PRN; Protocol PRN Reason: Sedation/Anxiety Stop: 03/07/24 15:24 Dexamethasone 6 mg/ Syringe 1.5 mls @ 1 mls/min IV DAILY [facility] Stop: 02/09/24 09:02 Last Admin: 02/07/24 08:46 Dose: 1 mls/min Influenza Virus Vaccine Quadrival (Do Not Administer Flu Vaccine) 1 each N/A PRN PRN PRN Reason: Notification Stop: 03/07/24 15:24 Insulin Aspart (Insulin Aspart Per Unit Charge) 0 units SC [facility] Stop: 03/07/24 16:29 Last Admin: 02/07/24 12:42 Dose: 14 units Insulin Glargine (Lantus Per Unit Charge) 20 units SC DAILY [facility]; Protocol Stop: 02/09/24 09:01 Last Admin: 02/07/24 08:53 Dose: 20 units Lisinopril (Lisinopril 20 Mg Tab) 20 mg PO [facility] Stop: 03/07/24 20:59 Last Admin: 02/06/24 21:04 Dose: 20 mg Lorazepam (Lorazepam 0.5 Mg Tab) 0.5 mg PO Q8H PRN PRN Reason: Sedation/Anxiety Stop: 03/07/24 15:24 Magnesium Hydroxide (Magnesium Hydroxide Susp 30 Ml Udc) 30 ml PO Q24H PRN PRN Reason: Constipation Stop: 03/07/24 15:24 Magnesium Oxide (Magnesium Oxide 400 Mg Tab) 400 mg PO [facility] Stop: 03/07/24 20:59 Last Admin: 02/06/24 21:06 Dose: 400 mg Metoclopramide HCl (Metoclopramide Hcl Inj 5 Mg/Ml 2 Ml Vial) 10 mg IV Q6H PRN PRN Reason: Nausea &/or Vomiting Stop: 03/07/24 15:24 Miscellaneous (Carbohydrates For Hypoglycemia ) 15 - 30 gm PO UD PRN PRN Reason: Hypoglycemia Treatment Stop: 03/07/24 16:14 Miscellaneous Information (Pharmacy Glycemic Mgmt Consult) 1 each N/A UD PRN PRN Reason: Consult Stop: 03/07/24 15:24 Naloxone HCl (Naloxone Hcl 0.4 Mg/1 Ml Vial/Carp) 0.1 mg IV Q5M PRN PRN Reason: Oversedation/Resp depression Stop: 03/07/24 15:24 Ondansetron HCl (Ondansetron Inj 2 Mg/Ml 2 Ml Vial) 4 mg IV Q6H PRN PRN Reason: Nausea &/or Vomiting Stop: 03/07/24 15:24 Last Admin: 02/07/24 08:40 Dose: 4 mg Ondansetron HCl (Ondansetron 4 Mg Od Tab) 4 mg PO Q6H PRN PRN Reason: Nausea Stop: 03/07/24 15:24 Oxybutynin Chloride (Oxybutynin Chloride Xl 5 Mg Tabcr) 5 mg PO QAM [facility] Stop: 03/08/24 08:59 Last Admin: 02/07/24 10:03 Dose: 5 mg Oxycodone HCl (Oxycodone Hcl Ir 5 Mg Tab (Immediate Release)) 5 - 10 mg PO Q4H PRN PRN Reason: Pain & Pre PT Stop: 02/20/24 15:24 Last Admin: 02/07/24 07:34 Dose: 10 mg Pantoprazole Sodium (Pantoprazole 40 Mg Tab) 40 mg PO BID [facility] Stop: 03/07/24 20:59 Last Admin: 02/07/24 10:03 Dose: 40 mg Pneumococcal Polyvalent Vaccine (Do Not Administer Pneumococcal Vaccine) 1 each N/A PRN PRN PRN Reason: Notification Stop: 03/07/24 15:24 Polyethylene Glycol (Polyethylene (Miralax) 17 Gm Pack) 17 gm PO Q6 [facility] Stop: 03/08/24 05:59 Last Admin: 02/07/24 11:27 Dose: 17 gm Pramipexole Dihydrochloride (Pramipexole Dihydrochlo 0.5 Mg Tab) 1.5 mg PO [facility] Stop: 03/07/24 20:59 Last Admin: 02/06/24 21:06 Dose: 1.5 mg Prazosin HCl (Prazosin Hcl 1 Mg Cap) 5 mg PO [facility] Stop: 03/07/24 20:59 Last Admin: 02/06/24 21:02 Dose: 5 mg Rosuvastatin Calcium ([facility]astatin Calcium 10 Mg Tab) [facility] Stop: 03/08/24 08:59 Last Admin: 02/07/24 10:03 Dose: 10 mg Senna/Docusate Sodium (Docusate Sodium/Senna 50/8.6mg Tab) 2 tab PO [facility] Stop: 03/07/24 20:59 Last Admin: 02/06/24 21:04 Dose: 2 tab Sertraline HCl (Sertraline Hcl 50 Mg Tablet) [facility] Stop: 03/08/24 08:59 Last Admin: 02/07/24 10:03 Dose: 50 mg Sodium Biphosphate/Sodium Phosphate (Sod Phosphate/Sod Biphosphate Enema 132 Ml Btl) 132 ml ID ONE PRN PRN Reason: Constipation Stop: 03/07/24 15:24 Tramadol HCl (Tramadol Hcl 50 Mg Tablet) 50 - 100 mg PO Q4H PRN PRN Reason: Moderate-Severe pain & Pre PT Stop: 03/07/24 15:24 Vitamin D (Cholecalciferol 10 Mcg (400 Units) Tab) 10 mcg PO BID [facility] Stop: 03/07/24 20:59 Last Admin: 02/07/24 11:26 Dose: 10 mcg
[2024-02-08 08:59] LABS: Basophils # (auto) 0.01 K/uL (0.00-0.20); Basophils % (auto) 0.2 %; Eosinophils # (auto) 0.01 K/uL (0.00-0.50); Eosinophils % (auto) 0.2 %; Hematocrit (blood only) 28.8 % (42.0-52.0); Hemoglobin 9.2 g/dl (14.0-18.0); Immature Granulocytes # (auto) 0.03 K/uL (0.01-0.20); Immature Granulocytes % (auto) 0.6 %; Lymphocytes # (auto) 0.93 K/uL (1.20-3.40); Lymphocytes % (auto) 18.7 %; Mean Corpuscular Hemoglobin 29.4 pg (25.0-34.0); Mean Corpuscular Hgb Conc 31.9 g/dL (32.0-36.0); Mean Platelet Volume 9.7 fL (9.4-12.4); Monocytes # (auto) 0.42 K/uL (0.11-0.59); Monocytes % (auto) 8.5 %; Neutrophils # (auto) 3.57 K/uL (1.40-6.50); Neutrophils % (auto) 71.8 %; Platelet Count 78 K/uL (130-400); RDW Coefficient of Variation 13.5 % (11.5-14.5); RDW Standard Deviation 45.4 fL (36.4-46.3); Red Blood Count 3.13 M/uL (4.70-6.10); White Blood Count 4.97 K/ul (4.8-10.8)
[2024-02-08 09:16] LABS: Albumin Globulin Ratio 1.6 (0.9-2); Albumin Level 3.3 gm/dl (3.4-5.0); Bilirubin,Total 0.5 mg/dl (0.2-1.0); Calcium 8.8 mg/dl (8.6-10.3); Creatinine Clr Calc Pharmacy 129.4 ml/min; Est GFR (African American) 115.6 ml/min; Est GFR (Non-African American) 99.7 ml/min; Globulin 2.1 gm/dl (2.5-4.0); Potassium 4.3 mmol/L (3.5-5.1); Total Protein 5.4 gm/dl (6.0-8.3)
--- NOTE | 2024-02-08 10:54 | Orthopedic Progress Note ---
Date of Service February 08, 2024 Assessment & Plan (1) Neurogenic claudication due to lumbar spinal stenosis: Plan: At this time we will continue physical therapy monitor his SHEYLA output anticipate discharge home tomorrow. Admission and Anticipated Discharge Date Admission Date: February 06, 2024 Subjective Back pain controlled leg pain improved Physical Exam Physical Exam: Patient is distracted testing. Patient is comfortable. Results & Data Vital Signs (Past 12 Hours) Vital Signs Temp Pulse Resp BP Pulse Ox O2 Del Method 02/08/24 07:41 36.9 C 102 H 20 116/68 92 Room Air Queries Orthopedic Spine Obesity: Yes
[2024-02-08 12:55] LABS: Immature Platelet Fraction 2.8 % (0.9-8.3)
--- NOTE | 2024-02-08 17:01 | Hospitalist Progress Note ---
Date of Service February 08, 2024 Assessment & Plan (1) Neurogenic claudication due to lumbar spinal stenosis: (2) Acute blood loss as cause of postoperative anemia: (3) Diabetes: Plan Mr. Uribe is a 63 year old male that presented to the [facility] for an elective L2-S1 decompression and fusion after failed conservative management under the care of Dr. Cr. Additional PMH includes: CAD s/p AMI with stent placement in 2012, DM, PTSD, HTN, depression and overactive bladder. He has had a hip replacement recently and also has had lumbar surgeries in [place] years ago. Consultation for medical management. Neurogenic claudication s/p l2-s1 decompression POD#2 L2-S1 decompression and fusion by Dr. Cr Activity and wound care orders as per ortho Pain control with bowel regimen PT/OT Monitor H/H for acute blood loss anemia and transfuse blood products PRN EBL 500 cc Acute blood loss anemia as cause of post operative anemia, expected Preop Hgb 13.9 -> 9.2 today No indication for transfusion Recommend follow-up with PCP for repeat CBC Post operative nausea and vomiting Resolved Thrombocytopenia Platelets 106k on 01/16 and low in 2022 may be dilutional in setting of surgery Peripheral smear unremarkable Platelets 77 K -> 78 K today Likely reactive due to surgery/blood loss Follow-up CBC with PCP Cervical stenosis of spinal canal: 10/2023 s/p C5-C7 A[address] Cr. CAD s/p BRUCE: HTN: Chronic 2012 stent x1 at [facility] Takes ASA daily;continue Takes Lisinopril; continue Continue statin Bipolar Disorder: Chronic Takes Depakote 1000mg qhs; continue Depression: PTSD: Chronic Takes Sertraline;continue He does use medical marijuana for PTSD/anxiety. PTSD is related to his miliary experiences. Triggers include loud noises, beeping, etc. states pt anxious and wishing to be discharged as soon as possible DM type II Chronic Takes Trijardy; hold while inpt and surgical team has pt placed on SSI FSBS ACHS Most recent A1C: 10/12 6.4 resume home medications at discharge RLS: Chronic Takes pramipexole;continue OAB: Chronic Takes Vesicare;continue DVT prophylaxis Teds/SCDs as per spine Ortho Dispo: patient medically stable for discharge today Patient seen in collaboration with Dr. Mcleod. Admission and Anticipated Discharge Date Admission Date: February 06, 2024 Supervising Physician Co-Signing Physician Notes I have discussed the case with the collaborating advanced practitioner. I agree with the above progress noted. I have reviewed and confirmed the patients medical history, the findings on physical examination, and the patients diagnosis and treatment plan with Kalina PERRIN and agree with the information documented. I have reviewed the advanced practitioner's documentation, and I agree with, and take responsibility for the plan of care Subjective Follow-up for medical management, s/p L2-S1 decompression and fusion by Dr. Cr Patient seen and examined. Reports pain is well-controlled. Denies numbness, tingling, weakness to lower extremities. No abdominal pain or nausea. + flatus, no BM. Johnson catheter remains in place. Reports some mild lightheadedness with standing, no syncopal event. Denies chest pain and shortness of breath. Physical Exam Constitutional: WD/WN, vitals as above no acute distress Respiratory: normal respiratory effort, lungs clear to auscultation Cardiovascular: Rate/Rhythm: regular rate and regular rhythm Vessels: normal peripheral pulses Extremities: no edema Gastrointestinal (Abdomen): Percussion/Palpation: abdomen soft; abdomen nontender Musculoskeletal: S/p back surgery, drain in place draining serosanguineous drainage, pedal pulses and pulsatile bilaterally Skin: no rashes, warm and dry Neurologic: no focal motor deficits Psychiatric: A+Ox3, euthymic affect Genitourinary: Johnson in place draining clear yellow urine Results & Data Results & Data Vital Signs (Past 12 Hours) Vital Signs Temp Pulse Resp BP BP Pulse Ox O2 Del Method 02/08/24 15:55 36.9 C 94 H 16 129/68 128/90 93 02/08/24 15:41 36.9 C 94 H 16 129/68 93 Room Air 02/08/24 07:41 36.9 C 102 H 20 116/68 92 Room Air Laboratory Results Short CBC 02/08/24 Range/Units 08:20 WBC 4.97 (4.8-10.8) K/ul Hgb 9.2 L (14.0-18.0) g/dl Hct 28.8 L (42.0-52.0) % Plt Count 78 L (130-400) K/uL BMP 02/08/24 08:20 Sodium 135 L Potassium 4.3 Chloride 104 Carbon Dioxide 27 BUN 14 Creatinine 0.70 Glucose 166 H Calcium 8.8 Liver Function 02/08/24 Range/Units 08:20 Total Bilirubin 0.5 (0.2-1.0) mg/dl AST 12 L (13-39) U/L ALT 9 (7-52) U/L Alkaline Phosphatase 40 (34-104) U/L Albumin 3.3 L (3.4-5.0) gm/dl
--- NOTE | 2024-02-09 10:10 | Discharge Summary ---
Date of Service February 09, 2024 Admission HPI Per Admitting Provider This is a 63-year-old male presents chronic persistent back and leg pain and failing since course of nonoperative care is here for surgical invention. Principal Diagnosis Lumbar spinal stenosis with neurogenic claudication Discharge Data Allergies Allergy/AdvReac Type Severity Reaction Status Date / Time hydrocodone Allergy Unknown itching Verified 02/06/24 08:11 midazolam [From Versed] AdvReac Severe Combative Verified 02/06/24 08:11 Consultations 02/06/24 15:25 Consult Hospitalist Routine Procedures Performed Operation Date: 02/06/24 09:35 Actual Procedures p L2-S1 Decompression and Fusion with Spinal Cord Monitoring(Not Applicable) - Zay Cr DO Ordered Studies 02/06/24 07:00 [place] lumbar spine 2-3V Routine Hospital Course (1) Neurogenic claudication due to lumbar spinal stenosis: Patient underwent multilevel lumbar decompression fusion tolerated as well as negative orthopedic for postoperative. Postoperatively progressed well. Pain well-controlled. Excellent strength testing. SHEYLA drain decreasing appropriately. Subsidy discharged home. Discharge orders and instructions found in chart for further review. Total Time Total Time Spent Total Time Spent (In Minutes): 20 minutes Discharge Plan Discharge Items Patient Disposition: Home - Self-Care Reason For Visit: POSTOP Discharge Diagnosis: Lumbar spinal stenosis with neurogenic claudication Activity: As commented below Non-emergency contact: Primary Care Provider Call non-emergency contact if: you have any medication questions Follow-up/Referrals: Jonathan Woods PA-C [Primary Care Provider] - Diet: Regular Addtl Attending Provider Instructions: ACTIVITY RECOMMENDATIONS: SELF CARE INSTRUCTIONS AFTER THORACIC/LUMBAR FUSIONS 1. You may walk to your tolerance. It is good exercise for your legs and back. Expect some back and intermittent leg aches and pains. 2. You may perform "counter-top" level activities (make a sandwich, julia with a project, etc.). 3. No bending or lifting of more than 10 pounds or back twisting of any nature (roll like a log when turning in bed). 4. You may ride in a car for 20-30 minutes at a time. No driving until after your first visit with your doctor. 5. Frequent changes of position and restricting sitting to 30 minutes at a time will help limit the amount of back spasms and stiffness you may experience. 6. You may discontinue the use of ambulatory aids (cane, crutches, etc.) once your strength and confidence allow. 7. You may curtain cleaner the shower and let water strike your incision when you arrive home at least once daily. Do not take a tub bath, sit in a hot tub or go into a swimming pool until after your first recheck in the office. SPECIAL CARE INSTRUCTIONS: VERY IMPORTANT TO READ AND REVIEW A. Your surgical incision has been closed with a cosmetic suture under the skin that will dissolve in about 6 weeks. In 14 days, you can use a pair of clean scissors and cut the suture that is left outside of the skin at the ends of your incision. 1. The small skin tapes can be removed 7 days after surgery if they have not fallen off by that point. 2. You may keep the wound open to air as much as possible to promote healing after post-op day number 5 unless told otherwise by your doctor. 3. If you think the wound looks like it is becoming infected (redness or worsening drainage) and/or you are experiencing fever, chill or worsening back pain and muscle spasms, contact the office so that we may evaluate you as soon as possible. B. Complications are uncommon, but please contact us if you have any signs or symptoms of: 1. wound infection (fever higher than 102.5 degrees F, redness, separation of wound, drainage, or increasing pain from the incision) 2. blood clots in legs (pain, swelling, redness and warmth in legs) 3. urinary tract infection (fever higher than 102.5 degrees F, burning upon urination or increased frequency of urination) 4. nerve problems (inability to walk on your toes or heels, numbness, loss of bowel or bladder control) 5. any other symptoms that concern you C. Please call the office at if you have any concerns or ques tions about your operation or recovery. D. No smoking! Smoking drastically decreases the chance of a solid fusion. E. Do not take any anti-inflammatory medications (Indocin, Advil, Motrin, Aspirin, Naprosyn, etc.) as these may inhibit the chance of a solid fusion. Tylenol is okay to take for pain. MANAGING PAIN AFTER SPINAL SURGERY 1. Narcotic medication is intended for short-term use and will be provided for surgical pain. Surgical pain usually lasts for a period of 4-6 weeks. Narcotic medication includes Percocet, Vicodin, Darvocet, Tylenol #3 or Lortab. 2. Longer-term pain is more appropriately treated with non-narcotic medication such as Tylenol ES. 3. Muscle spasm is not appropriately treated with narcotics. Muscle relaxers such as Soma, Flexeril or Skelaxin can be used along with Tylenol ES. 4. Remember that we all live with some "aches and pains". This is not unusual or uncommon after an injury or as we get older. a. Back pain is expected and may include muscle spasms for 4 to 6 weeks after surgery. The pain should gradually improve. If the pain worsens for no apparent reason, please contact the office. b. Intermittent leg pain may also be experienced and should not be concerned about unless it worsens for no apparent reason. If so, please contact the office. 5. We will provide appropriate medication within the normal guidelines of their prescribed use. We will also be very cautious and aware of potential abuse and extended duration of patients' medication needs. a. Pain medications are for your comfort and to assist with sleep and rest so that the tissue can heal. They are not provided in order to return to normal activity and should not be used through the day. To do so or worsening pain at night can result from ongoing tissue damage and development of tolerance to the prescribed medicine. 6. Please allow 2-3 days to process refills. Prescriptions will not be mailed but must be picked up at the office. FOLLOW UP VISIT: Keep your scheduled follow-up appointment. Any questions, please call the office at . Addtl Senior Structural Engineer Provider Instructions: Hospitalist discharge instructions: You are found to have low blood counts and low platelets while admitted. Low blood count likely secondary to recent surgery. Platelets were low during admission however stable. Recommend that you follow-up with your PCP within 1 week for repeat blood work. Pending Studies at Discharge: No Stand-Alone Forms: My [employer], Smoking Cessation Medications and DC Order Prescriptions: New tramadol 50 mg tablet 50 mg PO Q6H PRN (Reason: pain, moderate) Qty: 30 0RF oxycodone 5 mg tablet 5 mg PO Q6H PRN (Reason: pain) Qty: 30 0RF Continued lisinopril 20 mg Tablet 20 mg PO HS sertraline 100 mg Tablet 50 mg PO QAM divalproex [Depakote] 500 mg Tablet,Delayed Release (Dr/Ec) 1,000 mg PO HS pramipexole 0.5 mg Tablet 1.5 mg PO HS prazosin [Minipress] 5 mg Capsule 5 mg PO HS divalproex 500 mg Tablet Extended Release 24 Hr 500 mg PO QAM magnesium 200 mg Tablet 400 mg PO HS rosuvastatin 10 mg Tablet 10 mg PO QAM solifenacin [Vesicare] 5 mg Tablet 5 mg PO QAM Trijardy XR 12.5-2.5-1,000 mg Tablet, Ir - Er, Biphasic 24hr 1 tab PO QAM aspirin 81 mg Capsule 81 mg PO HS acetaminophen 500 mg Tablet 500 mg PO QID PRN (Reason: Pain) omeprazole 40 mg Capsule,Delayed Release(Dr/Ec) 40 mg PO BID docusate sodium 100 mg Capsule 100 mg PO BID polyethylene glycol 3350 17 gram/dose Powder 17 g PO DAILY PRN (Reason: Constipation) phenylephrine HCl 0.25 % Suppository 1 supp MA BID PRN (Reason: Hemorrhoids) tramadol 50 mg tablet 50 mg PO Q6H PRN (Reason: pain, moderate) Qty: 30 0RF Vitamin D3 1 tab PO BID Discharge Orders: Discharge Order (Routine); Ordered 02/08/24 Ordered By: Zay Cr Admission Data Admit Date/Time: 02/06/24 13:38 Attending Provider: Zay Cr Admit Provider: Zay Cr Primary Care Provider: Jonathan Woods Other Providers: Paris Marina Other Interventions: Discharge Summary Assessment (RN) Last Done: 02/08/24 15:55
== END 2024-02-08 16:54 | disposition home or self-care (01) | DRG 454 ==
LOC: ASU 07:38 → SUATTDRO 13:38 → 3E 13:38